=== PATIENT | female | born 1940 | race Caucasian/White ===

== ENCOUNTER → 2017-06-26 | Outpatient (CLI) | payer OTHER, BC ==
[~2017-06-26] MED LIST: AZITHROMYCIN 2250 MG PO; DUONEB 2.5-0.5 M3 ML INH; LEVEMIR SUBQ; LEVOTHYROXIN0.025 MG PO; OSELTAMIVIR PHO75 MG PO; OXYGEN MISCELL; PREDNISONE 10 M10 MG PO
== END ==
LOC: RAD 10:24
DX: J44.9 Chronic obstructive pulmonary disease, unspecified (principal)

== ENCOUNTER 2017-12-17 09:27 | Inpatient (IN) | payer OTHER, BC ==
[~2017-12-17] VITALS: Ht 160 cm; Wt 58.1 kg
--- NOTE | ~2017-12-17 | CATHLAB ---
[facility] [address] [place] [address] INVASIVE PROCEDURE REPORT Name: SANKET PETERSON VINITA Room #: 214-P [facility] IN [facility].#: [id number] Admission: 12/18/17 Attend Phys: Mayank Johnson, Discharge: Date of : 42 Date of Service: 12/23/17 0749 Report #: [id number] THIS REPORT FOR: //name// APPROVED REPORT Study performed: 12/22/2017 11:00:52 Patient Details Patient Status: In-Patient Room #: The patient is a 77 year-old female Event Personnel Fadi Ramirez Assistant Housekeeping Manager, Belkis Herring Partnoy, Nancy RTR, ZACK Monitor, Nena Funes RN RN, Sherwin Wray Monitor, Seven Jean RN chainstitch elastic attacher Performed CHUCK Place w/wo Plasty Single Left Main [id number] CHUCK Place w/wo Plasty Single CIRC [id number] ATHERECTOMY Indication Dyspnea, Unstable angina , Chest pain Risk Factors Chronic Lung DiseaseHypercholesterolemia, Tobacco History () Previous Procedures/Diagnoses A recent cardiac catheterization revealed a severe stenosis in the distal left main artery and proximal left circumflex artery. She was deemed high risk for CABG in view of her severe pulmonary disease. Procedure Narrative The Right Groin^ was infiltrated with 1% Lidocaine subcutaneous anesthesia. A PINNACLE 6FR Sheath #[id number] sheath was inserted into the LFA^. Coronary angiography was performed using coronary diagnostic catheters. Closure device was deployed with a 6 Fr MYNXGRIP 6/7F #[id number]. The patient tolerated the procedure well and there were no complications associated with the procedure. There was no hematoma. Intraoperative Conscious Sedation Sedation start time: 11.58 Case end Time: 13.07 [facility] [place] [address] INVASIVE PROCEDURE REPORT Name: SANKET PETERSON Room #: 214-P [facility] IN [facility]#: [id number] Admission: 12/18/17 Attend Phys: Mayank Johnson, Discharge: Date of : 42 Date of Service: 12/23/17 0749 Report #: [id number] Fentanyl 50 mcg Versed 1 mg Fluoro Time: 16.11 minutes Dose: DAP 6683 cGycm2 1307 mGy Contrast Type and Amount: Omnipaque 200 ml Hemodynamics The aortic pressure is 146/69 mmHg with a mean of 96 mmHg. PCI Technique Lesion Anticoagulation was achieved with Angiomax. Percutaneous coronary intervention was performed on the proximal left circumflex artery. The lesion stenosis prior to intervention was 95% with LYNNE 3 flow. A VISTA 6FR XB 3 #[id number] Guide Catheter was used to engage the ostium. A Luge Wire .014 x 182CM #[id number] Interventional Guidewire was used to cross the lesion. BALLOON DILATION A Balloon catheter Euphora RX 2.0 x 6 #[id number] was inserted and inflated up to 8atm for 6seconds. Additional Inflation: 8atm for 11seconds. Additional Inflation: 10atm for 16seconds. STENT DEPLOYMENT A drug-eluting stent RESOLUTE IGAN RX 2.5 X 18 #[id number] was inserted and inflated up to 14atm for 29seconds. Additional Inflation: 20atm for 15seconds. Final angiography reveals 5 % stenosis with LYNNE 3 flow. PCI Technique Lesion 2 Percutaneous Coronary Intervention was performed on the left main coronary artery. The lesion stenosis prior to intervention was 80% with LYNNE 3 flow. A VISTA 6FR XB 3 #[id number] Guide Catheter was used to engage the ostium. A Luge Wire .014 x 182CM #[id number] Interventional Guidewire was used to cross the lesion. Balloon Dilation A Balloon catheter Euphora RX 3.0 x 12 #[id number] was inserted and inflated up to 10atm for 16seconds. Additional Inflation: 12atm for 13seconds. Prior to balloon angioplasty, a 1.4 laser atherectomy was used: 1 pass at 50/45, 3 passes at 60/60. The patient tolerated the procedure at this point. The next step involved balloon angioplasty and stent placement. Stent Deployment A drug-eluting stent RESOLUTE GIAN RX 4.0 X 15 #[id number] was inserted [address] [address] INVASIVE PROCEDURE REPORT Name: SANKET PETERSON Room #: 214-P [facility] IN M.R.#: [id number] Admission: 12/18/17 Attend Phys: Mayank Johnson, Discharge: Date of : 42 Date of Service: 12/23/17 0749 Report #: [id number] and inflated up to 12atm for 13seconds. Post Stent Deployment Balloon Dilation A Balloon catheter TREK NC RX 4.0 X 12 #[id number] was inserted and inflated up to 18atm for 13seconds. Final angiography reveals 5 % stenosis with LYNNE 3 flow. Conclusion 1. Successful PCI involving laser atherectomy for debulking and placement of a drug-eluting stent into the severe left main artery stenosis. 2. Successful placement of a drug-eluting stent into the proximal left circumflex artery. 3. Recommend dual antiplatelet therapy. <ELECTRONICALLY SIGNED> By: Fadi Ramirez MD 12/23/17 0749 Fadi Ramirez MD /INF
--- NOTE | ~2017-12-17 | EKG ---
[address] [address] ELECTROCARDIOGRAM REPORT Name: NICHOLASSANKET Room #: 214-P ADM IN M.R.#: [id number] Admission: 12/18/17 Attend Phys: Mayank Johnson MD Discharge: Date of : 42 Report #: [id number] THIS REPORT FOR: //name// [facility] Test Date: 2017-12-22 Test Time: 13:52:09 Pat Name: SANKET PETERSON Department: Room: 214 P Gender: F Guest Services Director: Alf MILLS : 1940 Requested By: Fadi Ramirez Order Number: [id number] MD: Wood Berg Measurements Intervals [place] Rate: 79 P: 77 MI: 125 QRS: 53 QRSD: 86 T: 54 QT: 400 QTc: 459 Interpretive Statements Sinus rhythm Compared to ECG 12/22/2017 07:36:14 ST (T wave) deviation no longer present Electronically Signed On 12-22-2017 15:08:11 CDT by Wood Berg [email or web address] <ELECTRONICALLY SIGNED> By: Wood Berg MD 12/22/17 1508 1352 1352 Wood Berg MD /TIMOTHY
--- NOTE | ~2017-12-17 | 2DMMODE ---
[facility] [address] [place] [address] 2 D/M-MODE ECHOCARDIOGRAM Name: NICHOLASSANKET VINITA Room #: 214-P ADM IN M.R.#: [id number] Admission: 12/17/17 Attend Phys: Trey Snell Discharge: Date of : 42 Date of Service: 12/18/17 1104 Report #: [id number] THIS REPORT FOR: //name// APPROVED REPORT Study performed: 12/18/2017 10:19:39 EXAM: Comprehensive 2D, Doppler, and color-flow Echocardiogram Patient Location: Bedside Room #: 214 Status: routine BSA: 1.59 HR: 68 bpm BP: 120/48 mmHg Other Information Study Quality: Good Indications COPD Preop CABG 2D Dimensions RVDd: 30.18 mm IVSd: 10.72 (7-11mm) LVOT Diam: 19.57 (18-24mm) LVDd: 33.04 mm PWd: 9.63 (7-11mm) Ascending Ao: 31.26 (22-36mm) LVDs: 21.81 (25-40mm) Aortic Root: 29.39 mm IVC: 13.00 mm Volumes Left Atrial Volume (Systole) Single Plane 4CH: 24.46 mL Single Plane 2CH: 44.55 mL LA ESV Index: 23.00 mL/m2 Aortic Valve AoV Peak Grayson.: 1.52 m/s AO Peak Gr.: 9.25 mmHg LVOT Max P.72 mmHg LVOT Max V: 0.82 m/s JORGE Vmax: 1.63 cm2 Mitral Valve E/A Ratio: 0.7 MV Decel. Time: 347.90 ms MV E Max Grayson.: 0.56 m/s [facility] [place] [place] [address] 2 D/M-MODE ECHOCARDIOGRAM Name: SANKET PETERSON Room #: 214-P [facility] IN .R.#: [id number] Admission: 12/17/17 Attend Phys: Trey Snell Discharge: Date of : 42 Date of Service: 12/18/17 1104 Report #: [id number] MV A Grayson.: 0.78 m/s MV PHT: 100.89 ms IVRT: 96.89 ms Pulmonary Valve PV Peak Grayson.: 0.84 m/s PV Peak Gr.: 2.82 mmHg Pulmonary Vein P Vein S: 0.59 m/s P Vein A: 0.30 m/s P Vein D: 0.45 m/s P Vein A Dur.: 90.0 msec P Vein S/D Ratio: 1.31 Tricuspid Valve TR Peak Grayson.: 3.20 m/s RAP Estimate: 5.00 mmHg TR Peak Gr.: 40.98 mmHg PA Pressure: 46.00 mmHg Left Ventricle The left ventricle is normal size. There is normal left ventricular wall thickness. The left ventricular systolic function is normal. The left ventricular ejection fraction is within the normal range. LVEF is 60-65%. Mild diastolic dysfunction is present (impaired relaxation pattern). Right Ventricle The right ventricle is normal size. The right ventricular systolic function is normal. Atria The left atrium size is normal. The right atrium size is normal. Aortic Valve Mild aortic valve sclerosis. No aortic regurgitation is present. There is no aortic valvular stenosis. Mitral Valve Mild mitral annular calcification. Mild mitral regurgitation. No evidence of mitral valve stenosis. Tricuspid Valve The tricuspid valve is normal in structure. Mild to moderate tricuspid regurgitation. PAP is estimated at 46 mmHg. Pulmonic Valve The pulmonary valve is normal in structure[place] [address] 2 D/M-MODE ECHOCARDIOGRAM Name: NICHOLASSANKETRA TALAMANTES Room #: 214-P [facility] IN .R.#: [id number] Admission: 12/17/17 Attend Phys: Trey Snell Discharge: Date of : 42 Date of Service: 12/18/17 1104 Report #: [id number] regurgitation. Great Vessels The aortic root is normal in size. IVC is normal in size and collapses >50% with inspiration. Pericardium There is no pericardial effusion. <Conclusion> The left ventricle is normal size. There is normal left ventricular wall thickness. The left ventricular systolic function is normal. Mild diastolic dysfunction is present (impaired relaxation pattern). The right ventricle is normal size. The left atrium size is normal. Mild aortic valve sclerosis. Mild mitral regurgitation. Mild to moderate tricuspid regurgitation. PAP is estimated at 46 mmHg. <ELECTRONICALLY SIGNED> By: Fadi Ramirez MD 12/18/17 1104 1104 1104 Fadi Ramirez MD /INF
--- NOTE | ~2017-12-17 | CATHLAB ---
[facility] [address] [place] [address] INVASIVE PROCEDURE REPORT Name: NICHOLASSANKETRA TALAMANTES Room #: 214-P [facility] IN .R.#: [id number] Admission: 12/18/17 Attend Phys: Trey Snell Discharge: Date of : 42 Date of Service: 12/18/17 1324 Report #: [id number] THIS REPORT FOR: //name// APPROVED REPORT Study performed: 12/17/2017 10:25:46 Patient Details Patient Status: Out-Patient Room #: The patient is a 77 year-old female Event Personnel Trey Gunn Net C Developer, Nena Funes RN RN, Sherwin Wray, Belkis Herring Monitor Procedures Performed Art Access - R femoral artery* 06547 Initial Mod Sed Same Phys/QHP Gr5y 760809 Left Heart Cath w/or w/o Coronaries [id number] [facility] Hemostasis with Manual pressure supervision of conscious sedation Indication Chest pain Procedure Narrative The patient was brought electively to the Cardiac Catheterization Laboratory and was prepped and draped in a sterile manner. The Right Groin^ was infiltrated with 1% Lidocaine subcutaneous anesthesia. A PINNACLE 4FR Sheath #[id number] sheath was inserted into the RFA^. Coronary angiography was performed using coronary diagnostic catheters. The right coronary system was accessed and visualized with a JR 4 catheter. The left coronary system was accessed and visualized with a JL 4 catheter. The left ventricle was accessed and visualized with a Pigtail catheter. Left ventricular/Aortic Valve gradient assessed via catheter pullback. Left ventriculogram was performed in ANGEL projection. Hemostasis was obtained with manual pressure following sheath removal without any complications. The patient tolerated the procedure well and there were no complications associated with the procedure. There was no hematoma. Intraoperative Conscious Sedation Sedation start time: 12:00 Case end Time: 12:23 Versed 2 mg [facility] [place] [address] INVASIVE PROCEDURE REPORT Name: SANKET PETERSON Room #: 214-P [facility] IN ..#: [id number] Admission: 12/18/17 Attend Phys: Trey Snell Discharge: Date of : 42 Date of Service: 12/18/17 1324 Report #: [id number] Fluoro Time: 1.20 minutes Dose: DAP 680.00 cGycm2 94 mGy Contrast Type and Amount: Omnipaque 50 ml Coronary Angiography The patient's coronary anatomy is right dominant. [place] Artery Percent Stenosis Fluoroscopic evaluation demonstrates heavily calcified epicardial coronary arteries and elizabeth any aortic root Diagnostic Cath Left Main Normal origin and caliber bifurcates that anterior descending left circumflex. He has a terminal significant lesion of greater than 75% noted. LAD Moderate caliber vessel of normal origin and heavily calcified noted. There is a first septal industrial engineering intern which is small and has an ostial lesion. The LAD proper then continues with a trifurcation of diagonal in LAD noted. There appears to be at least a 50% blockage in the LAD proper although was not able to separate adequately. He continues in the anterior interventricular sulcus with luminal irregularities terminating as a bifurcating vessel at the apex. Circumflex Small caliber nondominant vessel which proceeds give rise to marginal branches there is a significant 85-90% lesion prior to the origin of the larger second marginal branch. It then continues on giving rise to the posterior circulation which is a small string-like vessel and the marginal vessel. OM1 Small insignificant size OM2 Moderate caliber vessel without significant obstructive lesions according along the lateral aspect of the heart Right Coronary Totally occluded proximally with the distal circulation filling from cmid-[id number]-nvpjl collaterals. It appears to involve a small lateral and posterior lateral wall circulation with a small posterior descending artery R PDA Small-caliber vessel coursing on the posterior interventricular sulcus towards the apex tapering towards the apex. It is filled by thur-ax-lzdoe collaterals without any antegrade filling noted Left Ventriculography Left Ventriculography was not performed. Hemodynamics The aortic pressure is 140/62 mmHg with a mean of 91 mmHg. The left ventricular pressure is 147/3 mmHg with a mean of mmHg. The left [facility] [address] [place] [address] INVASIVE PROCEDURE REPORT Name: SANKET PETERSON Room #: 214-P [facility] IN M.R.#: [id number] Admission: 12/18/17 Attend Phys: Trey Snell Discharge: Date of : 42 Date of Service: 12/18/17 1324 Report #: [id number] ventricular end diastolic pressure is 17 mmHg. Conclusion 1. Coronary artery disease, severe, triple-vessel including significant distal left main 2. Mildly decreased left ventricular ejection fraction 3. Abnormal hemodynamics with elevated left ventricular end-diastolic pressures Recommendations Cardiac Risk Reduction Program CABG <ELECTRONICALLY SIGNED> By: Trey Gunn MD 12/18/17 1324 23 132 Trey Gunn MD /INF
--- NOTE | ~2017-12-17 | H ---
[facility] [place] [address] HISTORY AND PHYSICAL Name: SANKET PETERSON Room #: 214-P ADM IN M.R.#: [id number] Admission: 12/18/17 Attend Phys: Mayank Johnson MD Discharge: Date of : 42 Report #: [id number] THIS REPORT FOR: //name// CC: Mayank Lemos DATE OF SERVICE: 12/18/2017 CHIEF COMPLAINT: Critical coronary artery disease, severe emphysema. HISTORY OF PRESENT ILLNESS: The patient has been followed in my office for the last 2 years. As part of routine care, coronary artery score was recommended to determine the degree of intensity needed in treating her elevated cholesterols, because she did not want to take cholesterol lowering medication unless it could be proved necessary and beneficial. Her calcium score was quite elevated and she was referred to a classroom monitor who ultimately admitted her and performed a cardiac catheterization showing complex severe coronary artery disease. For specifics regarding the abnormalities found in the cardiac catheterization, I referred to the summary in the cardiothoracic surgeon's note. Because of the severity of her pulmonary disease, it has been determined that a formal coronary artery bypass surgery is prohibitively risky, and a better approach is that of a skilled percutaneous atherectomy of her 70% left main disease and other coronary artery lesions. 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 CURRENT MEDICATIONS: DuoNeb by nebulizer 4 times daily, oxygen 2 liters or 3 liters continuously, levothyroxine 0.025 mg daily, vitamin D, metformin 500 mg 2 tablets daily and atorvastatin 20 mg once a day. Mastectomy 2003,appendectomy, hysterectomy. ALLERGIES: None known. REVIEW OF SYSTEMS: Essentially negative, the patient reports. PHYSICAL EXAMINATION: GENERAL: An elderly woman in no acute distress. HEENT: Unremarkable. NECK: Negative. There are no carotid bruits present. CHEST: The breath sounds are uniformly diminished throughout all lung dunham. CARDIOVASCULAR: S1 and S2 are normal and the rhythm is regular. ABDOMEN: Soft, nontender, without hepatosplenomegaly or masses. EXTREMITIES: There is no clubbing, cyanosis or edema in extremities. NEUROLOGIC: Screening neurological examination is normal without focal deficits. [address] [address] HISTORY AND PHYSICAL Name: SANKET PETERSON Room #: 214-P [facility] IN [facility].#: [id number] Admission: 12/18/17 Attend Phys: Mayank Johnson MD Discharge: Date of : 42 Report #: [id number] ASSESSMENT: 1. Critical left main coronary artery disease with other coronary artery abnormalities. 2. Severe chronic obstructive pulmonary disease mostly upper lobe emphysema -- oxygen dependent with chronic respiratory failure.. 3. Type 2 diabetes. 4. Hypothyroid. 5. T9 moderate to severe wedge compression fracture. 6. 6mm indeterminate subpleural nodule RUL f/u in 6 months suggested. 7. bilateral moderate <50% carotid plaques. 8. benign L breast biopsy 07-09-17. 9. Hyperlipidemia. 10. Microhematuria. PLAN: We will obtain hemoglobin A1c and institute low dose sliding scale insulin while the patient is being prepared for her atherectomy. Dr. Jimenez, thank you very kindly for asking me to see my patient in medical consultation. By: 2356 0021 Mayank Johnson MD /nt
--- NOTE | ~2017-12-17 | EKG ---
[address] [address] ELECTROCARDIOGRAM REPORT Name: SUJATA PETERSONRA TALAMANTES Room #: 214-P ADM IN M.R.#: [id number] Admission: 12/18/17 Attend Phys: Mayank Johnson MD Discharge: Date of : 42 Report #: [id number] THIS REPORT FOR: //name// [facility] Test Date: 2017-12-23 Test Time: 07:14:23 Pat Name: SANKET PETERSON Department: Room: 214 P Gender: F Senior Javascript Developer: ANNALEE : 1940 Requested By: Fadi Ramirez Order Number: [id number] MD: Wood Berg Measurements Intervals [place] Rate: 85 P: 81 [place]: 131 QRS: 63 QRSD: 73 T: 45 QT: 389 QTc: 463 Interpretive Statements Sinus rhythm Probable left atrial enlargement Compared to ECG 12/22/2017 13:52:09 No significant changes Electronically Signed On 12-23-2017 9:57:07 CDT by Wood Berg [email or web address] <ELECTRONICALLY SIGNED> By: Wood Berg MD 12/23/17 0957 3 3 Wood Berg MD /TIMOTHY
--- NOTE | ~2017-12-17 | EKG ---
[address] [address] ELECTROCARDIOGRAM REPORT Name: SUJATA PETERSONRA TALAMANTES Room #: 214-P ADM IN M.R.#: [id number] Admission: 12/18/17 Attend Phys: Mayank Johnson MD Discharge: Date of : 42 Report #: [id number] THIS REPORT FOR: //name// [facility] Test Date: 2017-12-22 Test Time: 07:36:14 Pat Name: SANKET PETERSON Department: Room: 214 P Gender: F Unscrambler: ANNALEE : 1940 Requested By: Fadi Ramirez Order Number: [id number] MD: Yves Meraz Measurements Intervals [place] Rate: 86 P: 79 MS: 120 QRS: 53 QRSD: 75 T: 60 QT: 385 QTc: 461 Interpretive Statements Sinus rhythm Minimal nonspecific ST segment abnormality Compared to ECG 05/07/2016 15:22:41 ST (T wave) deviation now present Electronically Signed On 12-22-2017 8:50:50 CDT by Yves Meraz [email or web address] <ELECTRONICALLY SIGNED> By: Yves Meraz MD, [facility] 12/22/17 0850 5 5 Yves Meraz MD, [facility] /EPI
[2017-12-17 09:54] VITALS: BP 129/70
[2017-12-17 09:57] LABS: HEMATOCRIT 42.4 % (37.0-47.0); MCH 27.8 pg (26.0-34.0); MCHC 32.9 g/dL (28.0-37.0); MCV 84.3 fL (80.0-100.0); RBC 5.03 mil/uL (4.20-5.00); RDW 16.7 % (10.5-14.5); WBC 7.4 thou/uL (4.0-11.0)
[2017-12-17] MEDS ORDERED: VITAMIN D1000 UNI1 PO (09:57)
[2017-12-17 10:04] LABS: CALCIUM 9.9 mg/dL (8.5-10.1); CREATININE 0.9 mg/dL (0.6-1.0); POTASSIUM 4.1 mmol/L (3.5-5.1)
[2017-12-17] MEDS ORDERED: LIPITOR 20 MG T20 M1 PO (11:59)
[2017-12-17 14:59] VITALS: BP 124/62
[2017-12-17 15:30] VITALS: BP 120/78
[2017-12-17 16:05] LABS: APTT 28.2 Seconds (24.5-32.8); PROTIME 10.3 Seconds (9.3-11.4)
[2017-12-17 16:11] LABS: BE(vivo) 4.1 mmol/L (-2 to +3); HCO3 30.9 mmol/L (22.0-26.0); PCO2 55.8 mmHg (35.0-45.0); PO2 87.9 mmHg (80.0-100.0); pH 7.361 (7.360-7.450); sO2 96.2 % (92.0-98.0)
[2017-12-17 16:30] VITALS: BP 124/62
[2017-12-17 17:50] VITALS: BP 126/65
[2017-12-17 20:18] VITALS: BP 130/63
[2017-12-18 05:42] VITALS: BP 108/52
[2017-12-18 09:26] VITALS: BP 120/48
[2017-12-18 12:17] VITALS: BP 113/57
[2017-12-18 16:30] VITALS: BP 127/89
[2017-12-18 19:27] VITALS: BP 114/48
[2017-12-19 05:10] VITALS: BP 112/52
[2017-12-19 08:12] VITALS: BP 115/45
[2017-12-19 11:52] VITALS: BP 101/45
[2017-12-19 15:11] VITALS: BP 137/56
[2017-12-19 19:01] VITALS: BP 108/56
[2017-12-20 04:06] LABS: GLYCOHEMOGLOBIN (HGB A1C) 7.3 % (4.8-5.6)
[2017-12-20 05:12] VITALS: BP 117/64
[2017-12-20 08:00] VITALS: BP 125/74
[2017-12-20 12:00] VITALS: BP 125/61
[2017-12-20 16:00] VITALS: BP 133/59
[2017-12-20 20:02] VITALS: BP 125/70
[2017-12-21 04:27] VITALS: BP 117/62
[2017-12-21 07:56] VITALS: BP 101/50
[2017-12-21 11:37] VITALS: BP 93/54
[2017-12-21 20:34] VITALS: BP 126/60
[2017-12-21 23:54] VITALS: BP 122/76
[2017-12-22] VITALS (12 sets, daily range): BP systolic 110–131; BP diastolic 58–66
[2017-12-22 03:23] LABS: HEMATOCRIT 36.7 % (37.0-47.0); HEMOGLOBIN 11.7 gm/dL (12.0-15.0); MCV 84.4 fL (80.0-100.0); RBC 4.35 mil/uL (4.20-5.00); RDW 16.7 % (10.5-14.5); WBC 8.5 thou/uL (4.0-11.0)
[2017-12-22 03:32] LABS: CALCIUM 9.6 mg/dL (8.5-10.1); CREATININE 0.8 mg/dL (0.6-1.0); POTASSIUM 4.3 mmol/L (3.5-5.1)
[2017-12-23 00:15] VITALS: BP 110/64
[2017-12-23 04:03] LABS: CALCIUM 9.8 mg/dL (8.5-10.1); CREATININE 0.8 mg/dL (0.6-1.0); POTASSIUM 4.2 mmol/L (3.5-5.1); TOTAL BILIRUBIN 0.7 mg/dL (<0.1-1.0); TOTAL PROTEIN 7.1 g/dL (6.4-8.2); TROPONIN-I 0.08 ng/mL (<0.06)
[2017-12-23 04:08] VITALS: BP 110/64
[2017-12-23 04:33] VITALS: BP 113/64
[2017-12-23 04:44] LABS: HEMATOCRIT 35.2 % (37.0-47.0); HEMOGLOBIN 11.7 gm/dL (12.0-15.0); MCHC 33.2 g/dL (28.0-37.0); MCV 84.3 fL (80.0-100.0); RBC 4.18 mil/uL (4.20-5.00); RDW 16.5 % (10.5-14.5); WBC 7.9 thou/uL (4.0-11.0)
[2017-12-23 07:47] VITALS: BP 105/50
[2017-12-23 10:40] VITALS: BP 137/69
[2017-12-23] MEDS ORDERED: BRILINTA90 MG PO (14:42)
[2017-12-23] MEDS ORDERED: ASPIR 8181 MG PO (14:42)
[2017-12-23 15:10] VITALS: BP 137/69
== END 2017-12-23 17:05 | disposition home or self-care (01) | DRG 246 ==
LOC: CV 09:27 → 2N 14:53 → ENTRNSPT 12-23 15:23 → EDTRNSPTSTS 12-23 15:26 → 2N 12-23 17:05
PROVIDERS: Internal Medicine; Internal Medicine Cardiovascular Disease; Thoracic Surgery (Cardiothoracic Vascular Surgery)
PROC: 4A023N7 Measurement of Cardiac Sampling and Pressure, Left Heart, Percutaneous Approach (ICD-10-PCS; principal; 2017-12-18)
PROC: B2151ZZ Fluoroscopy of Left Heart using Low Osmolar Contrast (ICD-10-PCS; principal; 2017-12-18)
PROC: B2111ZZ Fluoroscopy of Multiple Coronary Arteries using Low Osmolar Contrast (ICD-10-PCS; principal; 2017-12-18)
PROC: 02C03ZZ Extirpation of Matter from Coronary Artery, One Artery, Percutaneous Approach (ICD-10-PCS; 2017-12-22)
PROC: B2111ZZ Fluoroscopy of Multiple Coronary Arteries using Low Osmolar Contrast (ICD-10-PCS; 2017-12-22)
PROC: 027135Z Dilation of Coronary Artery, Two Arteries with Two Drug-eluting Intraluminal Devices, Percutaneous Approach (ICD-10-PCS; 2017-12-22)
DX: I25.10 Atherosclerotic heart disease of native coronary artery without angina pectoris (principal); J96.21 Acute and chronic respiratory failure with hypoxia; M48.54XA Collapsed vertebra, not elsewhere classified, thoracic region, initial encounter for fracture; R91.1 Solitary pulmonary nodule; E78.5 Hyperlipidemia, unspecified; E03.9 Hypothyroidism, unspecified; E11.9 Type 2 diabetes mellitus without complications; J43.9 Emphysema, unspecified; R31.9 Hematuria, unspecified; E78.00 Pure hypercholesterolemia, unspecified; Z87.891 Personal history of nicotine dependence; Z99.81 Dependence on supplemental oxygen; Z90.710 Acquired absence of both cervix and uterus; Z90.49 Acquired absence of other specified parts of digestive tract; Z90.10 Acquired absence of unspecified breast and nipple
CPT/HCPCS: 10081

== ENCOUNTER → 2018-07-03 | Outpatient (CLI) | payer OTHER, BC ==
[~2018-07-03] MED LIST changes: +ASPIR 8181 MG PO; +BRILINTA90 MG PO; +LIPITOR 20 MG T20 M1 PO; +VITAMIN D1000 UNI1 PO
== END ==
LOC: CAT 09:24
DX: R91.1 Solitary pulmonary nodule (principal); J43.2 Centrilobular emphysema; D71 Functional disorders of polymorphonuclear neutrophils; I25.10 Atherosclerotic heart disease of native coronary artery without angina pectoris

== ENCOUNTER → 2019-05-21 | Outpatient (CLI) | payer OTHER, BC | LOC: SJCVC 09:55 | DX: I25.10 Atherosclerotic heart disease of native coronary artery without angina pectoris (principal); J41.0 Simple chronic bronchitis; E11.9 Type 2 diabetes mellitus without complications; E03.9 Hypothyroidism, unspecified; Z90.49 Acquired absence of other specified parts of digestive tract; Z90.710 Acquired absence of both cervix and uterus; Z95.5 Presence of coronary angioplasty implant and graft; Z90.10 Acquired absence of unspecified breast and nipple; Z79.899 Other long term (current) drug therapy; Z87.891 Personal history of nicotine dependence ==

== ENCOUNTER → 2019-12-16 | Outpatient (CLI) | payer OTHER, BC | LOC: SJCVCIMAG 07:27 | PROVIDERS: ATTEND Internal Medicine | DX: I08.1 Rheumatic disorders of both mitral and tricuspid valves (principal); I27.20 Pulmonary hypertension, unspecified; I49.3 Ventricular premature depolarization; R00.0 Tachycardia, unspecified; I25.10 Atherosclerotic heart disease of native coronary artery without angina pectoris; E78.5 Hyperlipidemia, unspecified; E11.9 Type 2 diabetes mellitus without complications; Z79.899 Other long term (current) drug therapy; Z87.891 Personal history of nicotine dependence ==

== ENCOUNTER 2020-02-09 11:59 | Inpatient (IN) | payer OTHER, BC ==
[~2020-02-09] VITALS: Ht 160 cm; Wt 46.3 kg
[2020-02-09 12:09] VITALS: BP 156/78
[2020-02-09] MEDS ORDERED: CLOPIDOGREL75 MG PO (12:41)
[2020-02-09] MEDS ORDERED: METFORMIN HCL500 M1 PO (12:41)
[2020-02-09 13:03] LABS: BE(vivo) 13.1 mmol/L (-2 to +3); HCO3 39.9 mmol/L (22.0-26.0); PCO2 63.4 mmHg (35.0-45.0); PO2 102.9 mmHg (80.0-100.0); pH 7.417 (7.360-7.450); sO2 97.6 % (92.0-98.0)
[2020-02-09 13:32] LABS: ABSOLUTE NEUTROPHILS 5.4 thou/uL (1.4-8.2); BASOPHILS 0.6 % (0.0-2.0); EOSINOPHILS 0.7 % (0.0-3.0); HEMATOCRIT 32.4 % (37.0-47.0); HEMOGLOBIN 9.9 gm/dL (12.0-15.0); LYMPHOCYTES 17.6 % (24.0-44.0); MCH 24.9 pg (26.0-34.0); MCHC 30.6 g/dL (28.0-37.0); MCV 81.3 fL (80.0-100.0); MONOCYTES 8.2 % (1.0-8.0); PLATELET COUNT 202 thou/uL (150-400); POLYS 72.9 % (36.0-66.0); RBC 3.98 mil/uL (4.20-5.00); RDW 17.2 % (10.5-14.5); WBC 7.5 thou/uL (4.0-11.0)
[2020-02-09 13:34] LABS: ANION GAP 3 mmol/L (7-16); BUN 14 mg/dL (7-18); CALCIUM 9.3 mg/dL (8.5-10.1); CHLORIDE 99 mmol/L (98-107); CO2 36 mmol/L (21-32); CREATININE 0.7 mg/dL (0.6-1.0); GLUCOSE 116 mg/dL (74-106); POTASSIUM 4.2 mmol/L (3.5-5.1); SODIUM 138 mmol/L (136-145)
[2020-02-09 13:44] LABS: ALBUMIN 3.6 g/dL (3.4-5.0); MAGNESIUM 1.8 mg/dL (1.8-2.4); SGOT 30 U/L (15-37); SGPT 34 U/L (30-65); TOTAL BILIRUBIN 0.4 mg/dL (0.2-1.0); TOTAL PROTEIN 7.7 g/dL (6.4-8.2); TROPONIN-I <0.06 ng/mL (<0.06)
[2020-02-09 13:54] LABS: APTT 25.2 Seconds (24.5-32.8); PROTIME 10.5 Seconds (9.3-11.4)
--- NOTE | 2020-02-09 14:38 | EKG ---
[facility] [place] [address] ELECTROCARDIOGRAM REPORT Name: SANKET PETERSON Room #: [facility]#: [id number] Admission: 02/09/20 Attend Phys: Discharge: Date of : 42 Report #: [id number] THIS REPORT FOR: cc: Mayank Johnson MD, Stanley P. MD Santiago, Patrick MD [facility] ~ THIS REPORT FOR: //name// [facility] ED Test Date: 2020-02-09 Test Time: 13:18:31 Pat Name: SANKET PETERSON Department: Room: Gender: F Helper Coordinator: : 1940 Requested By: Ej Branch Order Number: [id number] MD: Jake Monae Measurements Intervals [place] Rate: 91 P: 83 ME: 119 QRS: 55 QRSD: 75 T: 0 QT: 361 QTc: 445 Interpretive Statements Sinus rhythm Borderline short ME interval Left atrial enlargement Borderline repolarization abnormality Compared to ECG 12/23/2017 07:14:23 No significant changes Electronically Signed On 02-09-2020 14:38:48 BUS INSPECTOR by Jake Monae [email or web address] <ELECTRONICALLY SIGNED> By: Jake Monae MD, FACC 02/09/20 1438 1318 Jake Monae MD, [facility] /EPI
[2020-02-09 15:24] LABS: % SATURATION 9 % (20-39); IRON 40 ug/dL (50-170); TIBC 428 ug/dL (250-450)
[2020-02-09 15:36] LABS: FOLIC ACID 16.4 ng/mL (8.6-58.9); TSH 1.769 uIU/mL (0.358-3.740)
[2020-02-09 21:56] VITALS: BP 135/56
[2020-02-10] VITALS (7 sets, daily range): BP systolic 92–158; BP diastolic 54–88
--- NOTE | 2020-02-10 00:31 | NUR ---
Attempted to call report to 4th floor nurse. No answer.
[2020-02-10 06:02] LABS: CREATININE 0.7 mg/dL (0.6-1.0); MAGNESIUM 1.8 mg/dL (1.8-2.4); POTASSIUM 3.7 mmol/L (3.5-5.1)
[2020-02-10 06:03] LABS: ABSOLUTE NEUTROPHILS 4.7 thou/uL (1.4-8.2); BASOPHILS 0.1 % (0.0-2.0); HEMATOCRIT 30.2 % (37.0-47.0); HEMOGLOBIN 9.6 gm/dL (12.0-15.0); LYMPHOCYTES 11.5 % (24.0-44.0); MCH 25.2 pg (26.0-34.0); MCHC 31.7 g/dL (28.0-37.0); MCV 79.6 fL (80.0-100.0); PLATELET COUNT 199 thou/uL (150-400); POLYS 86.4 % (36.0-66.0); RDW 17.3 % (10.5-14.5); WBC 5.4 thou/uL (4.0-11.0)
--- NOTE | 2020-02-10 07:04 | NUR ---
VSS-AFEBRILE. LUNGS DIMINISHED IN ALL GRIFFITH BILATERALLY. 2LNC IN PLACE, WEARS 2L AT HOME. VISIBLY SOA WHEN SPEAKING. OOB TO USE BSC WITH SBA DUE TO IV AND OXYGEN TUBING. CALLS APPROPRIATELY WHEN NEEDING ANY ASSISTANCE.
--- NOTE | 2020-02-10 10:11 | NUR ---
PT ADMITTED RELATED TO COPD EXACERBATION, HYPOXIC. CM REVIEWED CHART AND SPOKE WITH CARE TEAM. CM MET WITH PT AT BEDSIDE THIS DAY. PT APPEARED TO BE A&O X4. CM ROLE INTRODUCED. PT INDICATED SHE HAS BEEN BOUNCING [facility] SINCE SHE GAVE UP HER INDEPENDENT APARTMENT IN SEPTEMBER. SHE HAD MOST RECENTLY BEEN STAYING WITH HER DTR IN [facility]. PT INDICATED SHE HAS HOME O2 THROUGH [employer]. PT INDICATED SHE HAD BEEN ON 2L AT REST AND 3L WITH [facility] [employer]. PT INDICATED SHE IS HOPING TO BE ABLE TO GO TO AL AT [facility] IN THE NEAR FUTURE. SHE INDICATED SHE HAD TOURED A [employer] APARTMENT AND HAD SUBMITTED HER [employer] INFO. PT IS AGREEABLE TO GO TO FACILITY FOR SHORT TERM SKILLED REHAB STAY WITH HOPEFUL TRANSITION TO AL. REFERRAL TO BE SENTT. PHYSICIAN INDICATED LIKELY NO DC UNTIL BEGINNING OF NEXT WEEK. CM TO FOLLOW A INDICATED WITH DC PLANNING.
--- NOTE | 2020-02-10 14:41 | NUR ---
I have reviewed the documentation by DEION VENTURA from 02/10/20 to 02/10/20 and I concur with it. MARYURI MATHEWS, PT, DPT
--- NOTE | 2020-02-10 20:15 | NUR ---
PT A&OX4, VSS, DENIES PAIN. PATIENT SOA ON EXERTION BUT ABLE TO MAKE IT TO BATHROOM AND BACK TO BED, NEEDED TIME TO RECOVER. STATES SHE FEELS BETTER THAN YESTERDAY. NO SIGNS OF DISTRESS. WILL CONTINUE TO MONITOR.
[2020-02-11 00:58] VITALS: BP 92/61
--- NOTE | 2020-02-11 01:09 | NUR ---
Assumed care on 02/10/20 @ 19:15, A&Ox4 cooperative with care. HRRR, Lungs diministed bilateraly, on 2L n/c. Acucheck 257 6 units of S/S provided. [facility]
[2020-02-11 07:25] VITALS: BP 126/76
--- NOTE | 2020-02-11 10:30 | NUR ---
CM CALLED NIKKY IN ADMISSIONS AT [facility] TO CONFIRM RECIEPT OF REFERRAL SENT YESTERDAY. HE INDICATED THAT THEY HAD RECEIVED IT AND IT HAD BEEN PASSED ON FOR REVIEW FOR POSSIBLE AL ADMISSION. CM REITERATED THAT CARE TEAM ARE RECOMMENDING SHORT TERM POST ACUTE CARE STAY WITH TRANSITION TO AL. HE STATED HE WOULD NOTIFY REVIEW TEAM. CM TO FOLLOW INDICATED WITH DC PLANNING.
--- NOTE | 2020-02-11 13:00 | NUR ---
I have reviewed the documentation by DEION VENTURA from 02/11/20 to 02/11/20 and I concur with it. MARYURI MATHEWS, PT, DPT
[2020-02-11 15:22] VITALS: BP 132/79
--- NOTE | 2020-02-11 15:54 | NUR ---
PT A&OX4, VSS, DENIES PAIN. SOA ON EXERTION, ABLE TO RECOVER. PATIENTS DAUGHTER IN TO VISIT. NO SIGNS OF DISTRESS. IV PATENT. WILL CONTINUE TO MONITOR.
[2020-02-11 19:59] VITALS: BP 122/60
[2020-02-12 07:24] VITALS: BP 154/83
--- NOTE | 2020-02-12 10:44 | NUR ---
Received awake on bed. Due medications given as prescribed, able to swallow meds w/o difficulty. On O2 at 2lpm via nasal cannula- pt's baseline. On MS, not on telemetry; no complains and signs of chest pain, crushing sensation and heaviness. A+OX4. On heart healthy diet- tolerating well; no nausea, no vomiting and no abdominal pain noted. On blood sugar monitoring, taken and recorded accordingly; with sliding scale insulin ordered. With NS at 80cc/hr, infusing well at L AC. Up with assist. Assisted in ADLs. No complains of pain made during assessment. To continue monitoring patient.
[2020-02-12 15:33] VITALS: BP 141/65
[2020-02-12 20:00] VITALS: BP 149/65
--- NOTE | 2020-02-13 04:29 | NUR ---
VSS-AFEBRILE. EXPIATORY WHEEZES PRESENT IN LEFT UPPER AND LOWER LOBES. REMAINS SOA WITH EXERTION, RECOVERS WELL. 2LNC IN PLACE. OOB WITH SBA-STEADY ON FEET. CALLS APPROPRIATELY FOR ANY NEEDED ASSISTANCE.
[2020-02-13 07:15] VITALS: BP 136/63
[2020-02-13 15:16] VITALS: BP 124/68
--- NOTE | 2020-02-13 19:27 | NUR ---
Assumed pt care this am, VS stable, 2L of O2 via NC maintained. SOB noted when ambulating within the room. Daughter came to visit and mentioned pt gets very anxious at times especially when she has bouts of sob. Wheezing present, but resolves with RT treatments. Call appropriately, wanting to go to [facility] on Friday as expressed by pt. Pt prefers small frequent meals vs 2 full meals. POC follolwed with no signs or verbalizations of distress noted. Endorsed to the night nurse.
[2020-02-13 20:28] VITALS: BP 136/57
[2020-02-14 05:35] LABS: HEMATOCRIT 29.2 % (37.0-47.0); HEMOGLOBIN 9.2 gm/dL (12.0-15.0); MCH 25.7 pg (26.0-34.0); MCHC 31.6 g/dL (28.0-37.0); MCV 81.4 fL (80.0-100.0); RBC 3.59 mil/uL (4.20-5.00); RDW 18.1 % (10.5-14.5); WBC 8.2 thou/uL (4.0-11.0)
[2020-02-14 05:51] LABS: CALCIUM 8.7 mg/dL (8.5-10.1); CREATININE 0.7 mg/dL (0.6-1.0); MAGNESIUM 1.8 mg/dL (1.8-2.4)
--- NOTE | 2020-02-14 08:10 | NUR ---
Assumed pt care at 1900. A/OX4, VSS.Denied pain on assessment. Up ad michael in room with oxygen at 2L/NC, does get SOA with activity but no episodes of panic attacks this shift,LS with wheezes & diminished. IVF infusing via LUE IV w/o any problems. resting quietly at this time call light/personal items within reach.
[2020-02-14 09:46] VITALS: BP 147/66
--- NOTE | 2020-02-14 13:16 | NUR ---
HAVE SPOKEN WITH ADMISSIONS AT [facility] AND HE INDICATED THAT THEIR [facility] IS REVIEWING REFERRAL. CM ATTEMPTED TO CONTACT IZABEL WITH NO RESPONSE. CM LEFT VM WITH RING STRIKER ALEX. CM AWAITING RESPONSE. CARE TEAM INDICATED THAT PT IS MEDICALLY STABLE TO ND. COVID NEGATIVE TEST 02/12. CM FOLLOWING REGARDING HOPEFUL DISCAHRGE TO [facility] TODAY.
[2020-02-14] MEDS ORDERED: PULMICORT0.5 MG/22 INH (15:24)
[2020-02-14] MEDS ORDERED: IPRAT-ALBUT 0.5-3 ML INH (15:24)
[2020-02-14] MEDS ORDERED: VITAMIN B-12500 MCG PO (15:24)
[2020-02-14] MEDS ORDERED: FOLIC ACID1 MG PO (15:24)
[2020-02-14] MEDS ORDERED: PREDNISONE 10 M10 M1 PO (15:24)
[2020-02-14] MEDS ORDERED: TYLENOL325 MG PO (15:24)
--- NOTE | 2020-02-14 15:29 | NUR ---
CARE TEAM INDICATED THAT PT IS MEDICALLY STABLE TO DISCHARGE TO [facility] SKILLED THIS DAY. [facility] IS ABLE TO ACCEPT PT THIS DAY. CHART COPY ORDERED. ORDERS TO BE FAXED TO COMMUNITY ONCE COMPLETED. VAN TRANSPORT WITH 2L O2 ARRANGED FOR [id number]. PT IS AWARE AND AGREEABLE. CM CALLED AND LEFT VM WITH PT'S DTR. REPORT TO BE CALLED TO NURSE FOSTER AT . NO OTHER CM INTERVENTION INTERVETNION INDICATED. CASE CLOSED.
[2020-02-14 16:17] VITALS: BP 145/65
--- NOTE | 2020-02-14 16:26 | NUR ---
Assumed pt care this am, VS stable POC followed with no signs or distress noted. Diet and medications are tolerated well. DC orders given, report given to Sonal Guzman. IV removed, education given regarding O2 tank usage. Awaiting hot die picker.
--- NOTE | 2020-02-14 16:45 | NUR ---
I have reviewed the documentation by LYNN DEE from 02/14/20 to 02/14/20 and I concur with it. JUJU BILLINGS
== END 2020-02-14 17:57 | DRG 189 ==
LOC: ER 11:59 → EROBS 15:19 → 4W 15:19
PROVIDERS: Emergency Medicine; Nurse Practitioner; ADMIT Internal Medicine; ATTEND Internal Medicine
DX: J96.21 Acute and chronic respiratory failure with hypoxia (principal); J44.1 Chronic obstructive pulmonary disease with (acute) exacerbation; I16.0 Hypertensive urgency; R53.81 Other malaise; I25.10 Atherosclerotic heart disease of native coronary artery without angina pectoris; I10 Essential (primary) hypertension; E78.5 Hyperlipidemia, unspecified; E53.8 Deficiency of other specified B group vitamins; D63.1 Anemia in chronic kidney disease; J96.22 Acute and chronic respiratory failure with hypercapnia; D50.9 Iron deficiency anemia, unspecified; E11.9 Type 2 diabetes mellitus without complications; Z66 Do not resuscitate; Z20.828 Contact with and (suspected) exposure to other viral communicable diseases; Z90.710 Acquired absence of both cervix and uterus; Z99.81 Dependence on supplemental oxygen; Z90.49 Acquired absence of other specified parts of digestive tract; Z90.11 Acquired absence of right breast and nipple; Z79.01 Long term (current) use of anticoagulants; Z79.899 Other long term (current) drug therapy; Z79.82 Long term (current) use of aspirin; Z87.891 Personal history of nicotine dependence; Z79.84 Long term (current) use of oral hypoglycemic drugs
CPT/HCPCS: 10040

== ENCOUNTER 2020-06-22 08:35 | Inpatient (IN) | payer OTHER, BC ==
[~2020-06-22] VITALS: Ht 157.5 cm; Wt 49.6 kg
[~2020-06-22 08:35] MED LIST changes: +CLOPIDOGREL75 MG PO; +FOLIC ACID1 MG PO; +IPRAT-ALBUT 0.5-3 ML INH; +METFORMIN HCL500 M1 PO; +PREDNISONE 10 M10 M1 PO; +PULMICORT0.5 MG/22 INH; +TYLENOL325 MG PO; +VITAMIN B-12500 MCG PO
[2020-06-22 08:41] VITALS: BP 181/80
[2020-06-22 09:56] LABS: ABSOLUTE NEUTROPHILS 4.7 thou/uL (1.4-8.2); BASOPHILS 0.5 % (0.0-2.0); HEMATOCRIT 33.9 % (37.0-47.0); HEMOGLOBIN 10.9 gm/dL (12.0-15.0); LYMPHOCYTES 15.7 % (24.0-44.0); MCHC 32.1 g/dL (28.0-37.0); MONOCYTES 7.8 % (1.0-8.0); PLATELET COUNT 229 thou/uL (150-400); RBC 4.19 mil/uL (4.20-5.00); RDW 16.1 % (10.5-14.5); WBC 6.3 thou/uL (4.0-11.0)
[2020-06-22 09:58] LABS: ANION GAP 5 mmol/L (7-16); BUN 13 mg/dL (7-18); CALCIUM 9.1 mg/dL (8.5-10.1); CHLORIDE 98 mmol/L (98-107); CO2 34 mmol/L (21-32); CREATININE 0.7 mg/dL (0.6-1.0); GLUCOSE 142 mg/dL (74-106); POTASSIUM 3.7 mmol/L (3.5-5.1); SODIUM 137 mmol/L (136-145)
[2020-06-22 10:08] LABS: ALBUMIN 3.7 g/dL (3.4-5.0); SGOT 28 U/L (15-37); SGPT 29 U/L (14-59); TOTAL BILIRUBIN 0.3 mg/dL (0.2-1.0); TOTAL PROTEIN 7.6 g/dL (6.4-8.2); TROPONIN-I <0.06 ng/mL (<0.06)
[2020-06-22 10:31] LABS: BE(vivo) 6.3 mmol/L (-2 to +3); HCO3 32.3 mmol/L (22.0-26.0); PCO2 53.9 mmHg (35.0-45.0); PO2 84.8 mmHg (80.0-100.0); pH 7.396 (7.360-7.450); sO2 96.2 % (92.0-98.0)
--- NOTE | 2020-06-22 13:45 | EKG ---
[place] [address] [facility] [address] [place] [address] ELECTROCARDIOGRAM REPORT Name: SANKET PETERSON [id number] Admission: 06/22/20 Attend Phys: Discharge: Date of : 42 Report #: [id number] 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
[2020-06-22 14:28] VITALS: BP 124/46
[2020-06-22 15:55] VITALS: BP 151/68
--- NOTE | 2020-06-22 16:46 | NUR ---
PT ARRIVED TO UNIT AT 1610 VIA WHEELCHAIR. PT STATES SHE REQUEST DNR STATUS, CONTACTED DR TILLMAN FOR CORRECTION. PT UP AD SIOBHAN, STEADY. AT THIS TIME BSC WILL BE USED D/T REPORTED DIZZINESS. PT HAS FAMILY CONTACT OF DAUGHTER, SANKET GILES [phone] PT CURRENTLY ON 2L. DESATS WITHOUT OXYGEN. REPORTS NOT INCREASING OXYGEN AT HOME WITH SOB, JUST 'SITS THERE AND DEALS WITH IT' PT IS ATTENDING PULMONARY REHAB, BUT HAS BEEN HAVING SOB 'FOR A FEW DAYS'
--- NOTE | 2020-06-22 18:54 | NUR ---
THIS RN ASSISTED PT TO BSC. PT IS SOB WITH EXERTION. O2 INCREASED TO 3L. PT RESTING IN BED. PT AGAIN STATES SHE HAS NOT BEEN USING HOME OXYGEN PROPERLY AND HAS BEEN SOB 'FOR SO LONG'.
[2020-06-22 20:00] VITALS: BP 137/86
[2020-06-22 23:37] VITALS: BP 153/81
[2020-06-23 05:27] VITALS: BP 140/72
[2020-06-23 05:40] LABS: HEMATOCRIT 32.2 % (37.0-47.0); HEMOGLOBIN 10.2 gm/dL (12.0-15.0); MCHC 31.9 g/dL (28.0-37.0); MCV 81.5 fL (80.0-100.0); RBC 3.95 mil/uL (4.20-5.00); RDW 16.2 % (10.5-14.5); WBC 9.1 thou/uL (4.0-11.0)
[2020-06-23 05:44] LABS: CALCIUM 9.5 mg/dL (8.5-10.1); CREATININE 0.8 mg/dL (0.6-1.0); MAGNESIUM 1.8 mg/dL (1.8-2.4); POTASSIUM 4.4 mmol/L (3.5-5.1)
--- NOTE | 2020-06-23 07:45 | NUR ---
PROGRESS PT A/O X4 UP WITH SBA FOR SAFETY, GETS SOA WITH ACTIVITY AND HAD SOME DIZZINESS. IV SALINE LOCKED FLUSHED WITHOUT DIFFICULTY VOIDING QS CLEAR YELLOW URINE. ON 3 LITERS O2 HOME DOSE IS 2 LITERS. VSS CONTINUE POC.
[2020-06-23 08:22] VITALS: BP 155/74
--- NOTE | 2020-06-23 13:10 | NUR ---
INITIAL ASSESSMENT: DUY reviewed chart and spoke with nursing and attending physician. Pt was admitted from [facility] due to COPD exacerbation. Pt had negative COVID test on 06/22. Pt is on O2 and IV steroids. PT/OT ordered to evaluate pt. Recommendation made for pt to return to her AL apt. DUY spoke with pt via phone. Introduced role of DUY. Pt is alert/orientated x 4. Pt reports she lives alone in her AL apt at [facility]. Plan is for pt to return to her apt when discharged. DUY discussed HH services. Pt declines need for HH. Pt has home O2 in place through [facility]. Pt's PCP has been Dr. Mayank Johnson. However, pt states she has started seeing the facility physician. DUY spoke with Iwona at [facility], who confirms they are able to accept pt back when medically stable. [facility] does not have transportation available. Finalized discharge orders/summary will need to be faxed when available. DUY faxed clinical/therapy info to [facility] for review. DUY is following to assist as needed with discharge planning. [facility]--
[2020-06-23 15:03] VITALS: BP 145/74
--- NOTE | 2020-06-23 18:28 | NUR ---
ASSUMED PATIENT CARE AT 0700. A/O X4. ANXIOUS. ON 3L/NC. UP AD SIOBHAN. WILL KEEP MONITOR.
[2020-06-23 20:07] VITALS: BP 126/71
[2020-06-24 04:35] LABS: HEMATOCRIT 31.3 % (37.0-47.0); HEMOGLOBIN 9.8 gm/dL (12.0-15.0); MCH 25.4 pg (26.0-34.0); MCHC 31.2 g/dL (28.0-37.0); MCV 81.5 fL (80.0-100.0); RBC 3.84 mil/uL (4.20-5.00); RDW 16.4 % (10.5-14.5); WBC 15.6 thou/uL (4.0-11.0)
[2020-06-24 04:41] LABS: CALCIUM 9.3 mg/dL (8.5-10.1); CREATININE 0.9 mg/dL (0.6-1.0); MAGNESIUM 1.9 mg/dL (1.8-2.4); POTASSIUM 4.6 mmol/L (3.5-5.1)
[2020-06-24 04:55] VITALS: BP 127/64
--- NOTE | 2020-06-24 06:45 | NUR ---
PROGRESS P A/O X4. UP AD SIOBHAN. VOIDING QS.VSS. TELE INTACT READING SR/ST WIH ACTIVITY. SOB IS SLOWLY IMPROVING PER PATIENT ON 3 LITERS O2 RT TX'S CONTINUE. LUNGS SOUNDS WHEEZING NOTED THROUGHOUT ALL LUNG GRIFFITH. ACCUCHECKS AND SSI CONTINUE. SL TO RAC INTACT FLUSHED WITHOUT DIFFICULTY.
[2020-06-24 07:13] VITALS: BP 131/68
[2020-06-24 15:14] VITALS: BP 136/73
--- NOTE | 2020-06-24 17:41 | NUR ---
assumed patient care at 0700. a/o x4. sob with exertion. anxious. anax given. slolwy towards poc goals.
[2020-06-24 19:15] VITALS: BP 126/77
--- NOTE | 2020-06-24 21:50 | NUR ---
PT ALERT AND ORIENTED X4. VSS. AFEBRILE. NO C/O PAIN. NO S/S DISTRESS. PT UP TO BSC INDEPENDENLY. NO S/S DISTRESS PRESENTLY.
[2020-06-25 03:30] VITALS: BP 129/68
--- NOTE | 2020-06-25 05:38 | NUR ---
PT PROGRESSNG TOWARDS D/C GOALS. VSS AFEBRILE . NO C/O SOA THIS AM. SHE STATED SHE IS FEELING BETTER.
[2020-06-25 07:02] VITALS: BP 146/72
[2020-06-25 15:06] VITALS: BP 124/63
--- NOTE | 2020-06-25 17:53 | NUR ---
PATIENT PROGRESSING TOWARDS POC GOALS.
[2020-06-25 19:18] VITALS: BP 129/62
--- NOTE | 2020-06-25 22:22 | NUR ---
PT PROGRESSING WELL TOWARDS D/C GOALS. VSS AFEBRILE. DENIED PAIN. NO SOA. UP AD SIOBHAN TO BSC. NO S/S DISTRESS. XANAX GIVEN FOR SLEEP.
[2020-06-26 04:27] VITALS: BP 144/66
[2020-06-26 07:15] VITALS: BP 158/72
--- NOTE | 2020-06-26 14:09 | NUR ---
SW reviewed chart and spoke with nursing and attending physician. Pt is slowly progressing towards goals for discharge. Pt is on 2L of O2. Pt is on IV abx and IV steroids. Discharge back to [facility] is anticipated in 1-2 days. SW met with pt at bedside to discuss discharge plan. Pt states she would like to return to her AL apt. She will consider HH if it is recommended. Pt requests larger portable O2 tanks whe she returns to her apt. Pt is on service with [facility]. Pt states that her small O2 tanks, do not last very long. SW notified [facility] liaison. SW is following to assist as needed with discharge planning.
[2020-06-26 15:45] VITALS: BP 144/76
[2020-06-26 19:43] VITALS: BP 131/72
--- NOTE | 2020-06-26 21:26 | NUR ---
PT ALERT AND ORIENTED X4 . VSS AFEBRILE. DENIED PAIN. FEW CRACKLES NOTED. UNLABORED ON 2LNC. NO S/S DISTRESS. PROGRESSING WELL TOWARDS D/C GOALS.
[2020-06-27 02:16] VITALS: BP 113/61
[2020-06-27 04:54] VITALS: BP 132/69
--- NOTE | 2020-06-27 05:07 | NUR ---
Pt progressing well towards d/c goals. VSS. Afebrile this am. Lungs sound diminished but unlabored on 2lnc. pt excited to be going home today.
[2020-06-27 05:21] LABS: ABSOLUTE NEUTROPHILS 8.6 thou/uL (1.4-8.2); BASOPHILS 0.1 % (0.0-2.0); HEMOGLOBIN 10.4 gm/dL (12.0-15.0); LYMPHOCYTES 8.4 % (24.0-44.0); MCH 25.7 pg (26.0-34.0); MCHC 31.4 g/dL (28.0-37.0); MCV 81.7 fL (80.0-100.0); MONOCYTES 4.9 % (1.0-8.0); PLATELET COUNT 216 thou/uL (150-400); POLYS 86.6 % (36.0-66.0); RBC 4.03 mil/uL (4.20-5.00); RDW 16.5 % (10.5-14.5); WBC 9.9 thou/uL (4.0-11.0)
[2020-06-27 05:37] LABS: ALBUMIN 2.9 g/dL (3.4-5.0); CALCIUM 8.6 mg/dL (8.5-10.1); CREATININE 0.8 mg/dL (0.6-1.0); POTASSIUM 4.7 mmol/L (3.5-5.1); TOTAL BILIRUBIN 0.3 mg/dL (0.2-1.0)
[2020-06-27 07:06] VITALS: BP 159/79
[2020-06-27 11:20] VITALS: BP 142/60
--- NOTE | 2020-06-27 14:57 | NUR ---
SW reviewed chart and spoke with nursing and attending physician. Pt is progressing towards goals for discharge. Discharge back to [facility] tomorrow. Pt is on 2L of O2. Pt is on IV abx and IV steroids. [facility] liaison met with pt to coordinate delivery of additional portable O2 tanks to pt's apt. Pt is wanting the larger tanks that last longer than her small ones. SW met with pt at bedside to discuss discharge plan. Pt is aware and agreeable with plan. Pt declines HH at this time. Pt states her daughter will be able to provide transportation home tomorrow. SW is following to assist as needed with discharge planning.
[2020-06-27 15:24] VITALS: BP 135/66
[2020-06-27 20:05] VITALS: BP 139/66
[2020-06-28 04:18] VITALS: BP 130/74
--- NOTE | 2020-06-28 05:42 | NUR ---
Pt. stated she slept well during the night. Up ad michael in room with steady gait. Maintaining O2 sat in the upper 90's on 2L/NC. Reported shortness of breath with exertion but getting better. Denies any concern at this time. Progressing towards discharge goals.
[2020-06-28 07:10] VITALS: BP 147/79
[2020-06-28] MEDS ORDERED: ALPRAZOLAM 0.50.5 M1 PO (11:20)
[2020-06-28] MEDS ORDERED: MUCINEX600 MG PO (11:20)
[2020-06-28] MEDS ORDERED: PREDNISONE 10 M10 M1 PO (11:21)
[2020-06-28] MEDS ORDERED: LEVOFLOXACIN750 MG PO (11:22)
--- NOTE | 2020-06-28 13:33 | NUR ---
DISCHARGE NOTE: DUY reviewed chart and spoke with nursing and attending physician. Pt is medically stable for discharge back to [facility] today. SW met with pt at bedside to discuss discharge plan. SW offered to arrange home health for pt. Pt declines offer. Pt anxious about making sure her medications will be filled and available this evening. Pt states her dtr should be able to provide transportation back to [facility]. DUY spoke with staff at [facility], who request clinical info and discharge orders/summary for review. DUY placed another call to [facility] and spoke with an MD staff member, stating that Frida the DON, will need to confirm they have all the information. SW received call from pt's dtr, Arianne, stating she is able to provide transportation later this afternoon. However, pt's meds were sent to a [facility] by attending physician. Nursing faxed scripts to [facility]. Awaiting call back from [facility] at this time. Pt's dtr will call nurses station when en route to picker and sorter load and unload pt. DUY is following to finalize discharge.
[2020-06-28 15:38] VITALS: BP 147/64
--- NOTE | 2020-06-28 17:43 | NUR ---
ANXIOUS, PROGRESSING TOWARDS POC GOALS. DC HOME NOW.
== END 2020-06-28 18:39 | disposition home or self-care (01) | DRG 189 ==
LOC: ER 08:35 → 3W 15:45 → EROBS 15:45 → 3W 15:46
PROVIDERS: Emergency Medicine; Pediatrics; ADMIT Internal Medicine; ATTEND Internal Medicine
DX: J96.21 Acute and chronic respiratory failure with hypoxia (principal); J44.1 Chronic obstructive pulmonary disease with (acute) exacerbation; I25.10 Atherosclerotic heart disease of native coronary artery without angina pectoris; E11.9 Type 2 diabetes mellitus without complications; I10 Essential (primary) hypertension; E03.9 Hypothyroidism, unspecified; D64.9 Anemia, unspecified; M81.0 Age-related osteoporosis without current pathological fracture; F41.1 Generalized anxiety disorder; E78.5 Hyperlipidemia, unspecified; Z66 Do not resuscitate; Z20.822 Contact with and (suspected) exposure to COVID-19; Z90.710 Acquired absence of both cervix and uterus; Z90.11 Acquired absence of right breast and nipple; Z90.49 Acquired absence of other specified parts of digestive tract; Z79.82 Long term (current) use of aspirin; Z79.01 Long term (current) use of anticoagulants; Z79.899 Other long term (current) drug therapy; Z79.84 Long term (current) use of oral hypoglycemic drugs; Z87.891 Personal history of nicotine dependence; Z85.3 Personal history of malignant neoplasm of breast
CPT/HCPCS: 10879

== ENCOUNTER 2020-09-18 07:18 | Emergency (ER) | payer OTHER, BC ==
[~2020-09-18] VITALS: Ht 162.6 cm; Wt 47.6 kg
[~2020-09-18 07:18] MED LIST changes: +ALPRAZOLAM 0.50.5 M1 PO; +LEVOFLOXACIN750 MG PO; +MUCINEX600 MG PO
[2020-09-18 07:44] LABS: ABSOLUTE NEUTROPHILS 3.9 thou/uL (1.4-8.2); BASOPHILS 0.5 % (0.0-2.0); EOSINOPHILS 4.6 % (0.0-3.0); HEMATOCRIT 30.5 % (37.0-47.0); HEMOGLOBIN 9.3 gm/dL (12.0-15.0); LYMPHOCYTES 20.3 % (24.0-44.0); MCH 24.6 pg (26.0-34.0); MCHC 30.7 g/dL (28.0-37.0); MCV 80.2 fL (80.0-100.0); PLATELET COUNT 186 thou/uL (150-400); POLYS 63.6 % (36.0-66.0); RDW 16.8 % (10.5-14.5); WBC 6.1 thou/uL (4.0-11.0)
[2020-09-18] MEDS ORDERED: PULMICORT0.5 MG/2 M INH (07:48)
[2020-09-18 07:58] LABS: ANION GAP 5 mmol/L (7-16); BUN 11 mg/dL (7-18); CALCIUM 8.7 mg/dL (8.5-10.1); CHLORIDE 98 mmol/L (98-107); CO2 33 mmol/L (21-32); CREATININE 0.5 mg/dL (0.6-1.0); GLUCOSE 125 mg/dL (74-106); POTASSIUM 4.2 mmol/L (3.5-5.1); SODIUM 136 mmol/L (136-145)
[2020-09-18 08:10] LABS: ALBUMIN 3.5 g/dL (3.4-5.0); MAGNESIUM 1.8 mg/dL (1.8-2.4); SGOT 30 U/L (15-37); SGPT 27 U/L (30-65); TOTAL BILIRUBIN 0.3 mg/dL (0.2-1.0); TOTAL PROTEIN 6.8 g/dL (6.4-8.2); TROPONIN-I <0.06 ng/mL (<0.06)
[2020-09-18] MEDS ORDERED: PREDNISONE 20 M20 MG PO (08:49)
[2020-09-18 09:45] VITALS: BP 140/68
--- NOTE | 2020-09-18 09:47 | EKG ---
[place] [address] [facility] [place] [address] ELECTROCARDIOGRAM REPORT Name: SUJATA PETERSONRA VINITA Room #: REG [facility]#: [id number] Admission: 09/18/20 Attend Phys: Discharge: Date of : 42 Report #: [id number] [facility] ED Test Date: 2020-09-18 Test Time: 07:21:57 Pat Name: SANKET PETERSON Department: Room: Gender: F Manager Disaster Recovery: WILLY : 1940 Requested By: Rigo Cornejo Order Number: [id number] MD: Jake Monae Measurements Intervals [place] Rate: 95 P: 77 MO: 119 QRS: 58 QRSD: 84 T: 56 QT: 364 QTc: 458 Interpretive Statements Sinus rhythm Borderline short [place] interval Left atrial enlargement RSR' in V1 or V2, right VCD or RVH Compared to ECG 06/22/2020 08:52:11 Atrial abnormality now present Right ventricular hypertrophy now present RSR' in V1 or V2 now present Electronically Signed On 09-18-2020 9:47:29 CDT by Jake Monae [email or web address] <ELECTRONICALLY SIGNED> By: Jake Monae MD, [facility] 09/18/20 0947 0 0 Jake Monae MD, [facility] /EPI
== END 2020-09-18 09:45 | disposition home or self-care (01) ==
LOC: ER 07:18
PROVIDERS: Emergency Medicine Emergency Medical Services
DX: J44.1 Chronic obstructive pulmonary disease with (acute) exacerbation (principal); J45.998 Other asthma; F17.210 Nicotine dependence, cigarettes, uncomplicated; Z90.710 Acquired absence of both cervix and uterus; Z90.49 Acquired absence of other specified parts of digestive tract; Z98.890 Other specified postprocedural states; F41.9 Anxiety disorder, unspecified; I10 Essential (primary) hypertension; E11.9 Type 2 diabetes mellitus without complications; I25.10 Atherosclerotic heart disease of native coronary artery without angina pectoris; Z79.899 Other long term (current) drug therapy; Z87.891 Personal history of nicotine dependence

== ENCOUNTER 2020-12-26 06:12 | Inpatient (IN) | payer OTHER, BC ==
[2020-12-26] VITALS (8 sets, daily range): BP systolic 126–157; BP diastolic 57–72
[~2020-12-26] VITALS: Ht 157.5 cm; Wt 48.5 kg
--- NOTE | ~2020-12-26 | EMS ---
[address] [address] EMS Patient Care Report Name: SANKET PETERSON Room #: 361-P ADM IN M.R.#: [id number] Admission: 12/26/20 Attend Phys: Jason Curry MD Discharge: Date of : 42 Report #: [id number] THIS REPORT FOR: //name// Report Transmitted: 12/27/2020 12:37 EMS Care Summary [place], [place]/[facility] Incident [id number] @ 12/26/2020 05:32 Incident Location [address] [place] [address] Patient SANKET PETERSON Female, 80 Years 1940 Patient Address [address] [place] [address] Patient History Chronic Obstructive Pulmonary Disease (COPD), Patient Allergies No known allergies, Patient Medications Albuterol, Chief Complaint nasua Disposition Transported No Lights/[place] Dispatch Reason Sick Person Transported To [facility] Narrative m29 responded to a sick. Upon arrival m29 found the patient sitting on her bed. The patient stated she was feeling sick and nauseous that has been going on for 2 days. The patient also stated she had a past medical history of being SOB which is compounding the problems. m29 evaluated vital signs and [facility] and transported the patient without incident [address] [address] EMS Patient Care Report Name: SANKET PETERSON Room #: 361-P ADM IN Meli#: [id number] Admission: 12/26/20 Attend Phys: Jason Curry MD Discharge: Date of : 42 Report #: [id number] Initial Vitals @05:57P: 90,R: 18,BP: 152/98,Pain: 2/10,GCS: 15,SpO2: 99,Revised Trauma: 12, @06:05P: 90,R: 18,BP: 153/99,Pain: 4/10,GCS: 15,SpO2: 100,Revised Trauma: 12, Assessments @05:58MENTAL:No Abnormalities,SKIN:No Abnormalities,HEENT:Head/Face: No Abnormalities,Eyes: No Abnormalities,Neck/Airway: No Abnormalities,LUNG SOUNDS:General: Nausea,General: Diarrhea,Left Upper: No Abnormalities,Right Upper: No Abnormalities,Left Lower: No Abnormalities,Right Lower: No Abnormalities,ABDOMEN:General: Nausea,General: Diarrhea,Left Upper: No Abnormalities,Right Upper: No Abnormalities,Left Lower: No Abnormalities,Right Lower: No Abnormalities,PELVIS//GI:No Abnormalities,EXTREMITIES:Left Arm: No Abnormalities,Right Arm: No Abnormalities,Left Leg: No Abnormalities,Right Leg: No Abnormalities,PULSE:NEURO:No Abnormalities, Impression Abdominal Pain Procedures @05:54ALS AssessmentResponse: UnchangedSucceeded@06:04Oxygen FlowRate: 4 Device: Nasal Cannula (NC) Response: UnchangedSucceeded Timeline 05:31,Call Received 05:31,Dispatch Notified 05:32,Dispatched 05:34,En Route 05:48,On Scene 05:49,At Patient 05:54,ALS Assessment,Response: UnchangedSucceeded, 05:56,Depart Scene 05:57,BP: 152/98 M,PULSE: 90,RR: 18 R,SPO2: 99 Ox,ETCO2: ,BG: ,PAIN: 2,GCS: 15, 06:04,Oxygen FlowRate: 4 Device: Nasal Cannula (NC) Response: UnchangedSucceeded, 06:05,BP: 153/99 M,PULSE: 90,RR: 18 R,SPO2: 100 Ox,ETCO2: ,BG: ,PAIN: 4,GCS: 15, 06:07,At Destination 06:22,Call Closed Disclaimer v1.1 Copyright 2020 [employer] This EMS Care Summary contains data elements from the applicable legal record (which may be displayed differently). It is designed to provide pertinent information for the following purposes: continuity of care, clinical quality, and state data reporting. The complete legal [place] [address] EMS Patient Care Report Name: SANKET PETERSON Room #: 361-P ADM IN M.R.#: [id number] Admission: 12/26/20 Attend Phys: Jason Curry MD Discharge: Date of : 42 Report #: [id number] and administrators of the receiving hospital in ES's Patient Tracker. All data is provided "as is."
[~2020-12-26 06:12] MED LIST changes: -METFORMIN HCL500 M1 PO; +METFORMIN HCL500 MG PO; +PREDNISONE 20 M20 MG PO; +PULMICORT0.5 MG/2 M INH
[2020-12-26 07:42] LABS: HEMOGLOBIN 8.4 gm/dL (12.0-15.0); MCH 23.1 pg (26.0-34.0); MCHC 29.9 g/dL (28.0-37.0); MCV 77.3 fL (80.0-100.0); RBC 3.62 mil/uL (4.20-5.00); RDW 17.4 % (10.5-14.5); WBC 6.3 thou/uL (4.0-11.0)
[2020-12-26 07:53] LABS: ALBUMIN 3.5 g/dL (3.4-5.0); BUN 13 mg/dL (7-18); CALCIUM 8.7 mg/dL (8.5-10.1); CHLORIDE 98 mmol/L (98-107); CREATININE 0.5 mg/dL (0.6-1.0); GLUCOSE 125 mg/dL (74-106); POTASSIUM 4.2 mmol/L (3.5-5.1); SGOT 71 U/L (15-37); SGPT 99 U/L (30-65); SODIUM 141 mmol/L (136-145); TOTAL BILIRUBIN 0.3 mg/dL (0.2-1.0); TOTAL PROTEIN 6.8 g/dL (6.4-8.2)
[2020-12-26 07:54] LABS: CO2 > 45 mmol/L (21-32)
--- NOTE | 2020-12-26 09:01 | EKG ---
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
[2020-12-26 09:03] LABS: BE(vivo) 16.4 mmol/L (-2 to +3); HCO3 45.2 mmol/L (22.0-26.0); PO2 63.1 mmHg (80.0-100.0); pH 7.337 (7.360-7.450); sO2 89.2 % (92.0-98.0)
[2020-12-26 09:05] LABS: PCO2 86.3 mmHg (35.0-45.0)
[2020-12-26 10:13] LABS: URINE BILIRUBIN NEGATIVE (Negative); URINE BLOOD 1+ (Negative); URINE CLARITY CLEAR; URINE COLOR YELLOW; URINE GLUCOSE-RANDOM* NEGATIVE (Negative); URINE KETONES NEGATIVE (Negative); URINE LEUKOCYTES-REFLEX NEGATIVE (Negative); URINE NITRITE-REFLEX NEGATIVE (Negative); URINE PROTEIN (DIPSTICK) NEGATIVE (Negative); URINE UROBILINOGEN 0.2 E.U./dl (0.2-1.0)
[2020-12-26 11:58] LABS: BACTERIA-REFLEX 1-9 Few /HPF (None Seen); CASTS None Seen /LPF (None Seen); CRYSTALS None Seen /LPF (None Seen); SQUAMOUS 0-3 Few /LPF (0-3); URINE RBC 1-2 Rare /HPF (NONE SEEN); URINE WBC-REFLEX 0-5 Rare /HPF (0-5)
--- NOTE | 2020-12-26 18:28 | NUR ---
PT ARRIVED FROM ED AT 1230 ACCOMPANIED BY ED STAFF. AT THAT TIME PT IN TRIPOD POSITION REQUIRING ASSISTANCE TO TRANSFER TO ICU BED. SR/ST ON THE MONITOR. PT DENIES ANY PAIN. DAUGHTER SAKNET CALLED AND UPDATED BY THIS RN. PT VERBALIZED AT 1700 ASSESSMENT THAT SHE "FEELS BETTER THAN SHE HAS IN A LONG TIME" WILL CONTINUE TO MONITOR.
[2020-12-27 03:40] VITALS: BP 108/56
--- NOTE | 2020-12-27 04:47 | NUR ---
PT ALERT AND ORIENTED X 4. PT ON 3L NC. PT HAS SOA WITH EXERTION. PT HAD A BM DURING SHIFT AND IS SBA TO BSC. PT COMFORTABLE IN PRONE POSITION. WILL CONTINUE TO MONITOR.
[2020-12-27 05:59] LABS: ABSOLUTE NEUTROPHILS 4.3 thou/uL (1.4-8.2); HEMATOCRIT 28.9 % (37.0-47.0); HEMOGLOBIN 8.5 gm/dL (12.0-15.0); LYMPHOCYTES 11.8 % (24.0-44.0); MCH 22.8 pg (26.0-34.0); MCHC 29.5 g/dL (28.0-37.0); MCV 77.3 fL (80.0-100.0); MONOCYTES 5.2 % (1.0-8.0); PLATELET COUNT 179 thou/uL (150-400); RBC 3.73 mil/uL (4.20-5.00); RDW 17.6 % (10.5-14.5); WBC 5.2 thou/uL (4.0-11.0)
[2020-12-27 06:36] LABS: CREATININE 0.6 mg/dL (0.6-1.0); POTASSIUM 4.8 mmol/L (3.5-5.1)
[2020-12-27 07:45] VITALS: BP 126/67
[2020-12-27 12:20] VITALS: BP 135/69
[2020-12-27 16:17] VITALS: BP 150/77
--- NOTE | 2020-12-27 18:18 | NUR ---
RN ASSUMED PT'S CARE AT 0700AM, PT IS A&OX4 , PT IS ON O2 3-5 L/MIN/NC TODAY TO KEEP O2SAT > 90%, BUT PT IS SOB WITH ACTIVITIES, PT IS CONTINUING IV ABX, PT'S VS ARE STABLE, PT GETS UP TO CHAIR OR BSC WITH ASSIST, PT DENIES PAIN AND N/V BY THIS TIME.
[2020-12-27 20:00] VITALS: BP 147/72
[2020-12-28 04:14] VITALS: BP 124/69
--- NOTE | 2020-12-28 05:49 | NUR ---
PROGRESS PT A/O X4, ON 4 LITERS O2 VIA NC SATS AT 89 TO 93%. LUNGS COARSE AND DIMINISHED. PT ANXIOUS AT TIME AND BREATHES SHALLOWLY. HAVING DIFFICULTY TOLERATING BIPAP REFUSED TO WEAR IT LAST NIGHT. SATS STILL DROPPING QUICKLY WITH ACTIVITY AND TAKES A FEW MINUTES FOR HER TO RECOVER AND SATS TO INCREASE. HAD A HS SNACK, UP WITH 1 TO BSC VOIDING QS, HAD A BM 10/6. ACCUCHECKS WITH MEALS ONLY. TELEMETRY INTACT READING SR/ST IV TO LF SALINE LOCKED FLUSHES WITHOUT DIFFICULTY. CONTINUE POC.
[2020-12-28 07:39] VITALS: BP 138/67
--- NOTE | 2020-12-28 11:10 | NUR ---
INITIAL ASSESSMENT: DUY reviewed chart and spoke with nursing and attending physician. Pt was admitted from [facility] due to exacerbation of COPD. Pt is currently on 3L of O2. Pt is on IV abx and IV steroids. DUY met with pt at bedside. Introduced role of SW. Pt is alert/orientated x 4. Pt reports she lives alone in an AL apt at [facility]. Pt does not use DME for ambulation. Pt has home O2 in place through [facility]. Pt is normally on 2-4L. Pt has been to the SNF at [facility] and has used HH in the past. Pt is unsure name of HH agency. Pt's PCP is Dr. Mayank Johnson. SW discussed possible discharge needs. Pt states she may consider going to a SNF if needed, but she does not want to go to [facility] SNF. SW provided pt with list of SNFs for pt to review. DUY notified by attending physician that pt's code status is DNR and pt may be appropriate for palliative care/ hospice. DUY is following to assist as needed with discharge planning.
[2020-12-28 11:23] VITALS: BP 149/72
[2020-12-28 15:29] VITALS: BP 144/67
--- NOTE | 2020-12-28 19:17 | NUR ---
RN ASSUMED PT'S CARE AT 0700-1900PM, PT IS A&0X4, PT IS CONTINUING O2 4-5L/MIN/NC, PT IS CONTINUING IV ABX AND BRETHING TREATMENT, PT IS SOB WITH ACTIVITIES, PT GETS UP TO CHAIR AND BSC WITH SOME HELP, PT 'S CODE STATUS HAS CHANGED TO NO CODE TODAY, PT IS RELAXING NOW .
[2020-12-28 19:45] VITALS: BP 125/56
[2020-12-29 03:30] VITALS: BP 142/64
[2020-12-29 06:42] LABS: ABSOLUTE NEUTROPHILS 6.9 thou/uL (1.4-8.2); BASOPHILS 0.1 % (0.0-2.0); HEMATOCRIT 27.4 % (37.0-47.0); HEMOGLOBIN 8.4 gm/dL (12.0-15.0); LYMPHOCYTES 6.9 % (24.0-44.0); MCH 23.4 pg (26.0-34.0); MCHC 30.6 g/dL (28.0-37.0); MCV 76.5 fL (80.0-100.0); MONOCYTES 5.9 % (1.0-8.0); PLATELET COUNT 168 thou/uL (150-400); POLYS 87.1 % (36.0-66.0); RBC 3.58 mil/uL (4.20-5.00); RDW 17.7 % (10.5-14.5)
[2020-12-29 07:03] LABS: ALBUMIN 3.4 g/dL (3.4-5.0); BUN 18 mg/dL (7-18); CALCIUM 8.8 mg/dL (8.5-10.1); CHLORIDE 96 mmol/L (98-107); CREATININE 0.7 mg/dL (0.6-1.0); GLUCOSE 210 mg/dL (74-106); MAGNESIUM 2.1 mg/dL (1.8-2.4); PHOSPHORUS 3.8 mg/dL (2.5-4.9); SGOT 20 U/L (15-37); SGPT 56 U/L (30-65); SODIUM 140 mmol/L (136-145); TOTAL BILIRUBIN 0.2 mg/dL (0.2-1.0); TOTAL PROTEIN 6.6 g/dL (6.4-8.2)
[2020-12-29 07:07] LABS: CO2 > 45 mmol/L (21-32)
[2020-12-29 07:22] VITALS: BP 155/78
--- NOTE | 2020-12-29 07:35 | NUR ---
PT MAKING SLOW PROGRESS TOWARD GOAL. ON O2 AT 3L PER NC OVERNIGHT. PT REPORTS SOA ON EXERTION, WITH MOVEMENT TO BSC AND BACK TO CHAIR. X1 DOSE OF MORPHINE GIVEN THIS AM FOR AIR HUNGER. PT VOICED MILD RELIEF.
[2020-12-29 11:07] VITALS: BP 167/83
--- NOTE | 2020-12-29 12:06 | NUR ---
DUY reviewed chart and spoke with nursing and attending physician. Pt is progressing towards goals for discharge. Anticipate weekend discharge. DUY met with pt at bedside to discuss discharge plan: home with HH v. post-acute placement. Pt states she is wanting to consider SNF for rehab prior to going back to her AL apt at [facility]. DUY reviewed SNF options with pt. Pt states her first choice is [facility]. SW explained Medicare coverage for SNF. Pt verbalized understanding. DUY spoke with pt's dtr, Amber, via phone to discuss discharge plan. Amber is aware and in agreement with plan. Amber states that pt and family would also consider [facility] if [facility] is not an option. DUY explained that pt would likely be ready to discharge over the weekend. Transportation would be coordinated with the accepting facility. DUY faxed SNF referral to [facility] and notified Carolyn in admissions of new referral. Awaiting input from [facility] at this time. DUY is following to assist as needed with discharge planning.
[2020-12-29 15:37] VITALS: BP 131/59
--- NOTE | 2020-12-29 18:27 | NUR ---
RN ASSUMED PT'S CARE AT 0700AM, PT IS A&OX4, PT IS ON O2 4L/MIN/NC, PT'S O2SAT STAYS AT 92-94%, BUT PT STILL HAS SOB WITH ACTIVITIES, PT IS CONTINUING IV ABX AND BRETHING TREATMENT, PT GETS UP TO BSC AND CHAIR WITH ASSIST, PT MAY DC TO SNF TOMOORROW IF PT'S HEALTH CONDITION IS STABLE. PT DENIES PAIN AND N/V BY THIS TIME.
[2020-12-29 20:03] VITALS: BP 156/62
--- NOTE | 2020-12-30 04:55 | NUR ---
PT MAKING SLOW PROGRESS TOWARDS GOALS. ON O2 AT 3L PER NC. X1 DOSE OF XANAX GIVEN FOR COMPLAINTS OF ANXIETY. WOKE THIS MORNING, STATED THAT SHE FELT SHE WAS BREATHING WELL.
[2020-12-30 05:26] VITALS: BP 126/71
[2020-12-30 06:50] LABS: HEMATOCRIT 28.7 % (37.0-47.0); HEMOGLOBIN 8.5 gm/dL (12.0-15.0); MCH 22.6 pg (26.0-34.0); MCHC 29.6 g/dL (28.0-37.0); MCV 76.3 fL (80.0-100.0); PLATELET COUNT 178 thou/uL (150-400); RBC 3.75 mil/uL (4.20-5.00); RDW 17.6 % (10.5-14.5)
[2020-12-30 07:06] LABS: ALBUMIN 3.4 g/dL (3.4-5.0); BUN 18 mg/dL (7-18); CALCIUM 8.8 mg/dL (8.5-10.1); CHLORIDE 97 mmol/L (98-107); CREATININE 0.7 mg/dL (0.6-1.0); GLUCOSE 201 mg/dL (74-106); MAGNESIUM 2.1 mg/dL (1.8-2.4); PHOSPHORUS 4.3 mg/dL (2.5-4.9); POTASSIUM 4.8 mmol/L (3.5-5.1); SGOT 29 U/L (15-37); SGPT 62 U/L (30-65); SODIUM 141 mmol/L (136-145); TOTAL BILIRUBIN 0.3 mg/dL (0.2-1.0); TOTAL PROTEIN 6.3 g/dL (6.4-8.2)
[2020-12-30 07:27] LABS: CO2 > 45 mmol/L (21-32)
[2020-12-30 07:41] VITALS: BP 142/62
[2020-12-30 11:08] VITALS: BP 143/64
[2020-12-30] MEDS ORDERED: PREDNISONE 20 M20 MG PO (12:11)
[2020-12-30 12:32] LABS: ABSOLUTE NEUTROPHILS 6.3 thou/uL (1.4-8.2)
[2020-12-30 12:36] LABS: ANISOCYTOSIS 1+; HYPOCHROMASIA 2+; POIKILOCYTOSIS SLIGHT
[2020-12-30] MEDS ORDERED: TRADJENTA5 MG PO (12:56)
[2020-12-30] MEDS ORDERED: VITAMIN B-121000 MC2 SUBLING (12:56)
[2020-12-30] MEDS ORDERED: NYSTATIN100000 UNI SW&SWALLOW (12:56)
[2020-12-30] MEDS ORDERED: HALDOL 0.5 MG0.5 MG PO (13:04)
[2020-12-30] MEDS ORDERED: ALPRAZOLAM 0.50.5 M1 PO (13:09)
[2020-12-30] MEDS ORDERED: HUMALOG100 UNIT/1 SUBQ (13:09)
[2020-12-30 13:23] VITALS: BP 143/64
--- NOTE | 2020-12-30 13:28 | NUR ---
FAXED DISCHARGE ORDERS AND SUMMARY TO [facility] ([facility]). VERIFIED WITH OCTAV[facility]/YEIMI WEEKEND ADMISSION'S LIAISON THAT PATIENT WAS SCHEDULED TO BE PICKED UP AT 1300. IT WAS CANCELLED AND RESCHEDULED FOR 1700. [facility] WILL PROVIDE TRANSPORATION BY [facility]. CHART COPY REQUESTED & RN NOTIFED. SHARON/DAUGHTER AT [phone] WAS UPDATED W/TIME CHANGE AND GIVEN DIRECTIONS TO [facility] TO GO IN THE BACK TO BUILDING #2. PATIENT'S ROOM WILL BE [address] [facility] P [phone]; FAX [phone]; M [phone]
[2020-12-30 14:18] VITALS: BP 143/64
== END 2020-12-30 14:54 | disposition hospice, inpatient (51) | DRG 189 ==
LOC: ER 06:12 → 3W 09:15 → EROBS 09:15 → 3W 12:26
PROVIDERS: Internal Medicine; Nurse Practitioner; Student in an Organized Health Care Education/Training Program; ADMIT Internal Medicine; ATTEND Internal Medicine
PROC: 5A09357 Assistance with Respiratory Ventilation, Less than 24 Consecutive Hours, Continuous Positive Airway Pressure (ICD-10-PCS; principal; 2020-12-26)
PROC: 5A09357 Assistance with Respiratory Ventilation, Less than 24 Consecutive Hours, Continuous Positive Airway Pressure (ICD-10-PCS; 2020-12-27)
PROC: 5A0935A Assistance with Respiratory Ventilation, Less than 24 Consecutive Hours, High Flow/Velocity Cannula (ICD-10-PCS; 2020-12-27)
PROC: 5A0935A Assistance with Respiratory Ventilation, Less than 24 Consecutive Hours, High Flow/Velocity Cannula (ICD-10-PCS; 2020-12-28)
DX: J96.21 Acute and chronic respiratory failure with hypoxia (principal); E43 Unspecified severe protein-calorie malnutrition; J44.1 Chronic obstructive pulmonary disease with (acute) exacerbation; Z68.1 Body mass index [BMI] 19.9 or less, adult; M81.0 Age-related osteoporosis without current pathological fracture; I25.10 Atherosclerotic heart disease of native coronary artery without angina pectoris; F41.1 Generalized anxiety disorder; Z66 Do not resuscitate; I27.20 Pulmonary hypertension, unspecified; J96.22 Acute and chronic respiratory failure with hypercapnia; E03.9 Hypothyroidism, unspecified; D63.8 Anemia in other chronic diseases classified elsewhere; R53.81 Other malaise; E78.5 Hyperlipidemia, unspecified; E11.9 Type 2 diabetes mellitus without complications; Z20.822 Contact with and (suspected) exposure to COVID-19; Z87.81 Personal history of (healed) traumatic fracture; Z51.5 Encounter for palliative care; Z90.49 Acquired absence of other specified parts of digestive tract; Z90.710 Acquired absence of both cervix and uterus; Z87.891 Personal history of nicotine dependence; Z85.3 Personal history of malignant neoplasm of breast; Z90.11 Acquired absence of right breast and nipple; Z79.899 Other long term (current) drug therapy; Z79.82 Long term (current) use of aspirin; Z79.84 Long term (current) use of oral hypoglycemic drugs; Z79.02 Long term (current) use of antithrombotics/antiplatelets; Z99.81 Dependence on supplemental oxygen; Z91.19 Patient's noncompliance with other medical treatment and regimen
CPT/HCPCS: 10879

== ENCOUNTER 2020-12-30 17:43 | Emergency (ER) | payer OTHER, BC ==
[~2020-12-30] VITALS: Ht 162.6 cm; Wt 45.4 kg
[~2020-12-30 17:43] MED LIST changes: +HALDOL 0.5 MG0.5 MG PO; +HUMALOG100 UNIT/1 SUBQ; +NYSTATIN100000 UNI SW&SWALLOW; +TRADJENTA5 MG PO; +VITAMIN B-121000 MC2 SUBLING
[2020-12-30 17:44] VITALS: BP 132/62
== END 2020-12-31 00:07 ==
LOC: ER 17:43
DX: J44.9 Chronic obstructive pulmonary disease, unspecified (principal); Z79.899 Other long term (current) drug therapy; Z90.89 Acquired absence of other organs; Z90.710 Acquired absence of both cervix and uterus; I10 Essential (primary) hypertension; E11.9 Type 2 diabetes mellitus without complications; Z90.11 Acquired absence of right breast and nipple

== ENCOUNTER 2020-12-31 13:33 | Inpatient (IN) | payer OTHER, BC ==
[~2020-12-31] VITALS: Ht 160 cm; Wt 50.6 kg
--- NOTE | ~2020-12-31 | EMS ---
[address] [address] EMS Patient Care Report Name: SANKET PETERSON Room #: 219-P [facility] IN M.R.#: [id number] Admission: 01/01/21 Attend Phys: Romi Stout MD Discharge: 01/04/21 Date of : 42 Report #: [id number] THIS REPORT FOR: //name// Report Transmitted: 01/05/2021 13:45 EMS Care Summary [place], [place]/[facility] Incident [id number] @ 12/31/2020 13:00 Incident Location [address] [place] [address] 6 Patient SANKET PETERSON Female, 80 Years 1940 Patient Address [address] [place] [address] Patient History Chronic Obstructive Pulmonary Disease (COPD),Diabetes,Hypertension (HTN),Cardiac - Stent,Coronary Artery Disease (CAD), Patient Allergies No known allergies, Patient Medications Albuterol, Atorvastatin, Levothyroxine, Plavix, Metformin, Chief Complaint soa Disposition Transported No Lights/[place] Reason Breathing Problem Transported To [place] [facility] Narrative RESPONDED TO BREATHING PROBLEMS AT [facility]. UPON ARRIVAL PT FOUND SITTING ON EDGE OF BED ALERT AND ORIENTED. PT SOUNDS MILDLY WINDED WHEN TALKING SENTECNES. PT REPORTS SHE WAS SEEN AT ER LAST NIGHT FOR SHORTNESS OF AIR BUT [address] [address] EMS Patient Care Report Name: SANKET PETERSON Room #: 219-P [facility] IN M.R.#: [id number] Admission: 01/01/21 Attend Phys: Romi Stout MD Discharge: 01/04/21 Date of : 42 Report #: [id number] STILL FEELS SHORT OF BREATH WHILE JUST SITTING DOWN OR EXERTING ENERGY. PT VITALS OBTAINED. PT REPORTS THE ASSISTED NOT HAVING HER NEEDED OXYGEN TANKS BUT SHE IS CURRENTLY ON O2 CONCENTRATOR WHICH IS AT 4LPM. PT ASSISTED WALK TO COT AND SEATBELTS APPLIED. PT PLACED ON O2 AT 4LPM. PT REPORTS HAVING BREATHING TREATMENT THIS MORNING AND DOES NOT FEEL THE NEED FOR ANOTHER ONE CURRENTLY. PT VITALS AND 3LEAD OBTAINED. PT TRANSPORTED TO [facility] WITH NO CHANGES. PT TEAM LIFTED TO BED AND HANDRAILS UP. REPORT GIVEN TO NURSE. Initial Vitals @13:18P: 99,Pain: 0/10,GCS: 15,CO: 1, @13:09P: 105,R: 20,BP: 141/65,CO: 3,SpO2: 99, @13:17P: 101,R: 20,BP: 154/68,CO: 0,SpO2: 100, Assessments @13:08MENTAL:Event Oriented,Place Oriented,Time Oriented,Person Oriented,SKIN:HEENT:Head/Face: No Abnormalities,Neck/Airway: No Abnormalities,LUNG SOUNDS:General: No Abnormalities,Left Upper: No Abnormalities,Right Upper: No Abnormalities,Left Lower: No Abnormalities,Right Lower: No Abnormalities,ABDOMEN:General: No Abnormalities,Left Upper: No Abnormalities,Right Upper: No Abnormalities,Left Lower: No Abnormalities,Right Lower: No Abnormalities,PELVIS//GI:No Abnormalities,EXTREMITIES:Left Arm: No Abnormalities,Right Arm: No Abnormalities,Left Leg: No Abnormalities,Right Leg: No Abnormalities,PULSE:Radial: 2+ Normal,NEURO:No Abnormalities, Impression Chronic Obstructive Pulmonary Disease (COPD) Procedures @13:09ALS AssessmentResponse: UnchangedSucceeded@13:10Oxygen FlowRate: 4 Device: Nasal Cannula (NC) Response: UnchangedSucceeded@13:143-Lead ECGResponse: UnchangedSucceeded@PTAOxygen FlowRate: 4 Device: Nasal Cannula (NC) Response: UnchangedSucceeded Timeline BULB PACKER,Oxygen FlowRate: 4 Device: Nasal Cannula (NC) Response: UnchangedSucceeded, 12:59,Call Received 12:59,Dispatch Notified 13:00,Dispatched 13:01,En Route 13:04,On Scene 13:08,At Patient 13:09,ALS Assessment,Response: UnchangedSucceeded, 13:09,BP: 141/65 M,PULSE: 105,RR: 20 R,SPO2: 99 Ox,ETCO2: ,BG: ,PAIN: ,GCS: , 13:10,Oxygen FlowRate: 4 Device: Nasal Cannula (NC) Response: UnchangedSucceeded, 13:14,3-Lead ECG,Response: UnchangedSucceeded, [facility] [address] [place] [address] EMS Patient Care Report Name: SANKET PETERSON Room #: 219-P [facility] IN M.R.#: [id number] Admission: 01/01/21 Attend Phys: Romi Stout MD Discharge: 01/04/21 Date of : 42 Report #: [id number] 13:17,BP: 154/68 M,PULSE: 101,RR: 20 R,SPO2: 100 Ox,ETCO2: ,BG: ,PAIN: ,GCS: , 13:18,BP: / M,PULSE: 99,RR: R,SPO2: Ox,ETCO2: ,BG: ,PAIN: 0,GCS: 15, 13:18,Depart Scene 13:27,At Destination 13:43,Call Closed Disclaimer v1.1 Copyright 2020 [employer] This EMS Care Summary contains data elements from the applicable legal record (which may be displayed differently). It is designed to provide pertinent information for the following purposes: continuity of care, clinical quality, and state data reporting. The complete legal record is available to ED staff and administrators of the receiving hospital in [employer] Patient Tracker. All data is provided "as is."
--- NOTE | 2020-12-31 13:42 | NUR ---
SPOKE WITH PATIENT'S DAUGHTER SHARON: [phone]. NOTIFIED OF PT ARRIVAL SHARON VERBALIZED AWARENESS OF PLAN FOR PT ADMISSION. SHARON CONCERNED ABOUT DISCHARGE OF PT. NOTIFIED THAT CASE MANAGEMENT OR STAFF WOULD BE IN CONTACT WITH HER TOMORROW 01/01/21
[2020-12-31 13:44] VITALS: BP 142/61
[2020-12-31 16:06] VITALS: BP 142/81
[2020-12-31 16:40] VITALS: BP 142/83
[2020-12-31 17:07] VITALS: BP 136/74
--- NOTE | 2020-12-31 18:15 | NUR ---
PT AND REPORT FROM ED AT APPROXMITALY 1700. EXPLAINED ADMISSION TO PT AND FAMILY.
[2020-12-31 19:55] VITALS: BP 120/40
[2021-01-01 04:45] VITALS: BP 116/57
--- NOTE | 2021-01-01 07:25 | NUR ---
PT RESTING ON AND OFF THRU SHIFT, SOMETIMES USES CALL LIGHT APPROPRIATLY, NO C/O PAIN, ANXIETY MEDS GIVEN CHARTED, REMAINS ON 2L/NC WITH RT TX'S, PLANS TO TX TODAY TO [facility], WILL CON'T TO MONITOR PER PPOC.
[2021-01-01 08:50] VITALS: BP 112/48
--- NOTE | 2021-01-01 09:53 | NUR ---
Patient was discharged to skilled care on Friday the to [facility] where discussions for care including skilled continuing verses move to palliative and or hospice was to take place upon skilled environment and assessment. Although original transport pick-up of 1300 was cancelled by nurse; CM re-established pick-up at 1500 and patient was discharged to [facility]. Later at 1800 patient was sent back to [facility] ED by [facility] to be assessed for SOA. Patient then left and returned to her original Assisted Living Apartment at [facility]. On 12-31-20 patient returned to the ED and was admitted for oxygen flow which was increased from 2 to 4 L. ABG at that time in the ED showed pH of 7.3, PCO2 of 86, and PO2 of 63. Chest x-ray with no acute changes. Patient was started on BiPAP, given neb treatments, and admitted. Per patient request a palliative care consult was put in on 01-01-21. Daughter Amber at [phone] this AM and discussed the events of these events. Discussed palliative care consult and she is in full agreement with this plan. Amber notes there is no DPOA on this patient but she has been the contact for her mother. Amber was notified that [facility] is not accepting visitors as they have had a staff member test positive and she cannot get in her apartment at this time. Amber did state that previously the patient had been at [facility] in a skilled capacity and the patient made her promise that if needed for any further skilled or custodial care she would not return to [facility] in a skilled or Group Home care capacity. Explained that the CM team; upon palliative care assessment will look if needed for marine oil terminal superintendent care outside [facility]. Assured Amber that at this time the hospital palliative care team will reach out to her and a secure plan of care moving forward that both she and the patient will be notified of and agreed upon prior to discharge.
[2021-01-01 12:00] VITALS: BP 115/49
--- NOTE | 2021-01-01 15:36 | NUR ---
Faxed hospice referral to [facility], fax # [phone]
--- NOTE | 2021-01-01 15:49 | NUR ---
Follow up call with daughter as Palliative Care consult stated that patient now looking towards skilled however MD notes and discussed with daughter that patient unable to respond to current medications and would be unable to participate in any therapies. Daughter asked in our discussion if her mother could be evaluated for hospice/palliative services while in-house. Did reach attend and AGILE PROJECT MANAGER and an order for hospice to eval and treat placed to review for possible GIP hospice transition. Order obtained to eval and treat and was faxed to [phone] with [facility] hospice. Reached out to Liaison who will have the patient seen and evaluated. Again followed up with Daughter Amber at [phone] and discussed this was to take place. Discussed that if the patient were to need LTC hospice this would be at a private pay rate for room and board. Discussed that if that be the case there may an option with family support back to her [place] apartment and Hospice services. However will allow Hospice to evaluate needs presently and will follow up on next steps. CM will follow up as Hospice completes their evaluation.
[2021-01-01 16:20] VITALS: BP 128/54
--- NOTE | 2021-01-01 18:24 | NUR ---
PT HAD A DECENT SHIFT. PT WAS ASKING FOR PRN XANAX EVERY 4 HOURS THE ORDER WAS CHANGED TO 3 TIMES A DAY. NO FAMILY AT BEDSIDE TODAY.
[2021-01-01 20:15] VITALS: BP 109/47
--- NOTE | 2021-01-02 04:02 | NUR ---
PT ALERT AND ORIENTED, WITH ANXIETY.SOA WITH ACTIVITY-ON O2/2L/NC. WEAK APPEARING,DENIES PAIN.SWALLOWS OKAY. CALL LIGHT WITHIN REACH.
[2021-01-02 04:45] VITALS: BP 119/54
[2021-01-02 08:20] VITALS: BP 124/59
--- NOTE | 2021-01-02 09:49 | NUR ---
Spoke with daughter Amber at [phone] this AM and informed that [facility] has reached out to their partners at [facility] and Polly/Narinder have agreed to review her mother's case for LTC Medicaid Pending placement on Hospice services. Will have referrals sent to both facilities today and notified [facility] of above.
[2021-01-02 11:40] VITALS: BP 138/63
[2021-01-02 15:30] VITALS: BP 135/52
--- NOTE | 2021-01-02 17:33 | NUR ---
PT SAT UP IN BED AND REMAINS ON OXYGEN VIA NC. PT TAKING IN GOOD PO AND MEDICATION FOR ANXIETY. WILL CONTINUE TO ASSESS.
[2021-01-02 20:39] VITALS: BP 140/59
[2021-01-03 05:19] VITALS: BP 123/52
--- NOTE | 2021-01-03 07:25 | NUR ---
PT RESTING ON AND OFF THRU THE NOC, ON 3L/NC AND SOA WITH ACTIVITY, VSS, REFUSED INSULIN STATED SHE TAKES TRADJENTA, UP TO BSC PER SELF, NO C/O PAIN, REPORT GIVEN TO NEXT SHIFT TO CON'T PPOC.
[2021-01-03 07:30] VITALS: BP 133/60
--- NOTE | 2021-01-03 12:41 | NUR ---
Patient with recent dc from [facility] to [facility] for skilled care. [facility] sent patient to ER shortly after arrival for low 02 sats. From Er patient dc to [facility] to her Assisted living apt. [facility] then sent patient back to [facility] ER. Patient admitted with SOA, Patient evaled with pallative care. Discussion with dtr and patient of ltc placement with medicaid pending. Referral to [facility] care who met with patient and have spoken with dtr. Hospice inquiring into facilities for ltc medicaid pending. [facility] hospice reports today that patient has assessts and [place]. Dtr discussing dc plannint with Director of casemgt. Dtr interested in skilled care at [facility]. Met with patient to discuss post acute care. Patient agreeable to work with therapy. She is agreeable to transition to [facility] skilled care. She reports "thats where my stuff is and my apt." She is aware she would go to [facility] skilled unit. She is agreea ble with plan. Faxed clinical information to Braden admissions at [facility].
--- NOTE | 2021-01-03 13:46 | NUR ---
SPOKE WITH PHARMACY AND THEY WILL ORDER SOME NASAL GEL TO HELP WITH DRYNESS.
[2021-01-03 15:30] VITALS: BP 148/72
--- NOTE | 2021-01-03 16:52 | NUR ---
PT REFUSING INSULIN COVERAGE TODAY. CM TRYING TO FIND HOSPICE PLACEMENT. PT TAKING IN GOOD PO AND MEDICATION FOR ANXIETY WILL CONTINUE TO ASSESS.
--- NOTE | 2021-01-03 17:20 | NUR ---
Spoke with therapy who reports patient refused and reports she does not want to go to skilled at [facility]. Sp with patient and discussed our conversation in am. Spoke with Braden at [facility]. they are accepting for skilled care. He reports patient can refuse therapy. THey will attempt and if needed can assist with transfer to ltc. Patient interest in hospice house eval reports a family member was there in past. Faxed clinical to [facility]. Plan eval at 0900 am 01/04/21. Sp with dtr and patient all in agreement with plan for [place] eval if not a candidate then possibly dc to [facility] skilled care.
--- NOTE | 2021-01-03 18:38 | NUR ---
SPOOKE WITH PT AND PT'S SON AND THEY WANT TO BE MORE AGRESSIVE WITH MEDICATION FOR ANXIETY. HAD DR LAYNE AL TO SON AND THEY AGREED TO START 2MG MORPHINE IV EVERY 2 HOUR PRN. WILL CONTINUE TO ASSESS.
[2021-01-03 20:15] VITALS: BP 131/52
[2021-01-04 04:45] VITALS: BP 126/53
--- NOTE | 2021-01-04 04:57 | NUR ---
PT IS ALERT AND ORIENTED X4. LUNGS ARE CLEAR TO DIMINISHED. UP TO BEDSIDE COMODE TO VOID WITH NURISNG ASSISTANCE. COMPLAINED OF PAIN AND PAIN MEDS GIVEN AND THEN PT SLEPT THROUGH THE NIGHT. NO EDEMA NOTED. CALL LIGHT WITHIN REACH IF NEEDS ASSISTANCE PER NURSING STAFF. ONGOING NURSING CARE ON THE UNIT. FALL RISK BED ALARM ON FOR PT SAFETY.
[2021-01-04 08:00] VITALS: BP 115/49
--- NOTE | 2021-01-04 09:27 | NUR ---
OT COMPLETED CHART REVIEW AND SPOKE WITH PT. AND RN. EXPLAINED ROLE OF OT, PT. STATES SHE WISHES TO GO ON HOSPICE AND DOES NOT WANT THERAPY SERVICES. OT WILL PLACE PT. ON D/C.
[2021-01-04 11:00] VITALS: BP 127/54
--- NOTE | 2021-01-04 14:34 | NUR ---
PATIENT MEDICATIONS AND CARE TRANSFERRED TO [facility] RN AROUND 1000, AT THIS TIME ASSESSMENT NOT COMPLETE ON PAITENT DUE TO PRIORITY OF CARE WITH A SHIFT CRTICIAL SHIFT CHANGE ADMISSION. RESUMMED CARE OF PATIENT AT 1245. AT THIS TIME [facility] ARRIVED TO TRANSPORT PATIENT TO [facility]. REPORT CALLED TO RECIEVING JESSE ZAMAN. CHART COPY SENT WITH [facility]. IV HAD BEEN REMOVED BY UTILIZATION MANAGEMENT MANAGER, NEW IV STARTED IN RIGHT AC PER REQUEST OF HOSPICE HOUSE. ALL BELONGING ACCOUNTED FOR PER SON WHO WAS AT BEDSIDE.
--- NOTE | 2021-01-04 16:19 | NUR ---
Hospice evaled patient and reports accepted to Hospice House. Son Burt at bedside. He and patient agreeable to transfer to Hospice house. Reports dtr Amber updated. Completed outside DNR form. FD for 1:00. Rn called report. No further needs.
== END 2021-01-04 13:47 | disposition hospice, home (50) | DRG 189 ==
LOC: ER 13:33 → 2N 15:11 → EROBS 15:11 → 2N 15:11
PROVIDERS: ADMIT Internal Medicine; ATTEND Internal Medicine
DX: J96.21 Acute and chronic respiratory failure with hypoxia (principal); J44.1 Chronic obstructive pulmonary disease with (acute) exacerbation; I27.20 Pulmonary hypertension, unspecified; Z20.822 Contact with and (suspected) exposure to COVID-19; E11.9 Type 2 diabetes mellitus without complications; I25.10 Atherosclerotic heart disease of native coronary artery without angina pectoris; F41.9 Anxiety disorder, unspecified; E78.5 Hyperlipidemia, unspecified; I10 Essential (primary) hypertension; Z66 Do not resuscitate; Z90.11 Acquired absence of right breast and nipple; Z90.710 Acquired absence of both cervix and uterus; Z90.49 Acquired absence of other specified parts of digestive tract; Z79.4 Long term (current) use of insulin; Z87.81 Personal history of (healed) traumatic fracture; Z87.891 Personal history of nicotine dependence; Z85.3 Personal history of malignant neoplasm of breast; Z99.81 Dependence on supplemental oxygen; Z79.52 Long term (current) use of systemic steroids; Z79.899 Other long term (current) drug therapy; Z51.5 Encounter for palliative care
CPT/HCPCS: 10194